=== PATIENT | female | born 1955 | race Caucasian/White ===

== ENCOUNTER 2024-01-17 13:53 | Outpatient (AMB) | payer MEDICARE, SELFPAY ==
--- NOTE | 2024-01-17 13:56 | HO.NEPHOV_ITS ---
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 She has had hypertension for almost 24 years. Initially she was on amlodipine and Edarbi She developed atrial fibrillation. Amlodipine has been switched to Cardizem. Recently blood pressure has been suboptimal. She has been monitoring of blood pressure at home blood pressure fluctuates anywhere from 130 mm up to 160 mm Hg. Recent blood work revealed a creatinine of 1.4. She had renal ultrasonogram which showed essentially normal-appearing kidneys with normal echogenicity no stones or hydronephrosis. Right kidney was reported as 8.2 cm with the left kidney measuring 10.7. But echogenicity was normal Review of Systems Const Denies fever(s) and Denies weight loss Card Denies chest pain Resp Denies cough and Denies hemoptysis GI Denies abdominal pain, Denies diarrhea and Denies nausea Musc Denies back pain Neuro Denies focal weakness Physical Exam Vital Signs: Last Vital Signs Pulse 75 01/17/24 13:57 BP 160/74 H 01/17/24 13:57 Pulse Ox 98 01/17/24 13:57 Oxygen Delivery Method Room Air 01/17/24 13:57 BMI result Body Mass Index 29.3 Comfortable Neck supple no JVD. Lungs entry equal no rales. Heart S1-S2 heard no gallop or rub. Abdomen soft nontender. Neuro alert awake oriented. No asterixis. Extremities no edema. Results Reviewed Results Reviewed: Serum creatinine 1.4 Nephrology Results: No Data to Display Assessment & Plan Assessment & Plan (1) HTN (hypertension): Code(s): I10 - Essential (primary) hypertension Category: Medical (2) CKD (chronic kidney disease): Code(s): N18.9 - Chronic kidney disease, unspecified Category: Medical Plan 69-year-old man with mild CKD and hypertension. Kerri has had hypertension for more than 24 years. In the office for initial blood pressure was 1 60 mm and repeat systolic blood pressure was 200 mm Hg. She might have superimposed white coat effect in addition to underlying hypertension. I will obtain a 24 hour ambulatory blood pressure monitoring CKD Differential diagnosis would include hypertensive nephrosclerosis. Recent ultrasonogram did not reveal any obstruction. Other glomerular interstitial disease seem unlikely but nevertheless we will rul e that out. I have not made any changes to the antihypertensive medication. Once ABP M is completed I will adjust the medications Encouraged her to stand low-sodium diet Continue to avoid nephrotoxic agents including NSAIDs. We will keep you updated Orders: Orders Comprehensive Met. Panel Today I10 - Essential (primary) hypertension, N18.9 - Chronic kidney disease, unspecified UA and rflx microscopic Today I10 - Essential (primary) hypertension, N18.9 - C hronic kidney disease, unspecified Sodium Urine Random Today I10 - Essential (primary) hypertension, N18.9 - Chronic kidney disease, unspecified Vitamin D 25-OH (D2 and D3) Today I10 - Essential (primary) hypertension, N18.9 - Chronic kidney disease, unspecified AMB 24 HR B/P Monitor PLACEMENT Today I10 - Essential (primary) hypertension Parathyroid Hormone Intact Today I10 - Essential (primary) hypertension, N18.9 - Chronic kidney disease, unspecified Creatinine Urine Today I10 - Essential (primary) hypertension, N18.9 - Chronic kidney disease, unspecified Coding Level of Care Code New Pt Level 4 (05375) Diagnoses HTN (hypertension) I10 CKD (chronic kidney disease) N18.9
[2024-01-17 13:57] VITALS: BP 160/74; PULSE 75; O2SAT 98; BMI 29.3
== END 2024-01-17 14:40 | disposition home or self-care (01) ==
PROVIDERS: PCP Physician Assistant Medical; Visit Provider Internal Medicine Hypertension Specialist
DX: I12.9 Hypertensive chronic kidney disease with stage 1 through stage 4 chronic kidney disease, or unspecified chronic kidney disease (principal); N18.2 Chronic kidney disease, stage 2 (mild)
CPT/HCPCS: 99204

== ENCOUNTER → 2024-01-17 13:53 | Outpatient (BNVA) | payer MEDICARE, SELFPAY | PROVIDERS: PCP Physician Assistant Medical; Visit Provider Internal Medicine Hypertension Specialist | DX: I12.9 Hypertensive chronic kidney disease with stage 1 through stage 4 chronic kidney disease, or unspecified chronic kidney disease (principal); N18.9 Chronic kidney disease, unspecified | CPT/HCPCS: 99202 ==

== ENCOUNTER → 2024-01-18 13:41 | Outpatient (BNVA) | payer MEDICARE, SELFPAY | PROVIDERS: PCP Physician Assistant Medical; Visit Provider Internal Medicine Hypertension Specialist | DX: I10 Essential (primary) hypertension (principal) | CPT/HCPCS: 93786 ==

== ENCOUNTER 2024-01-23 10:47 | Outpatient (REF) | payer MEDICARE, SELFPAY ==
[2024-01-23 12:02] LABS: Appearance Urine Clear; Color Urine Yellow; Glucose Urine UA Negative (Negative); Leukocyte Esterase Urine Negative (Negative); Nitrite Urine Negative (Negative); PH 5.5 (5.0-9.0); Specific Gravity - Urine 1.015 (1.005-1.025); UMIC TRIGGER UA YES; Urine Blood Negative (Negative); Urine Ketones Negative (Negative); Urine Protein 30 (1+) mg/dL (Neg-Trace)
[2024-01-23 12:07] LABS: Bacteria Urine None Seen (None Seen); Hyaline Casts Urine 0-2 /LPF (0-2); RBC Urine 0-2 /HPF (0-2); WBC Urine 0-5 /HPF (0-5)
[2024-01-23 12:23] LABS: Alanine Aminotransferase 22 U/L (0-31); Albumin Level 4.3 g/dL (3.5-5.0); Alkaline Phosphatase 78 U/L (39-117); Anion Gap 12 (12-20); Aspartate Amino Transferase 30 U/L (5-31); Bilirubin Total 0.5 mg/dL (0.0-1.0); Blood Urea Nitrogen 15 mg/dL (9-16); Calcium 9.3 mg/dL (8.4-10.2); Carbon Dioxide 26 mmol/L (22-29); Chloride 103 mmol/L (96-108); Estimated Glomerular Filt Rate 56; Glucose Random 120 mg/dL (60-115); Potassium 3.8 mmol/L (3.3-5.1); Sodium 137 mmol/L (135-145); Total Protein 7.7 g/dL (6.5-8.0)
[2024-01-23 12:28] LABS: Parathyroid Hormone Intact 133.5 pg/mL (8.7-77.1)
[2024-01-27 16:03] LABS: Vitamin D 25-OH, D2 <4 ng/mL; Vitamin D 25-OH, D3 17 ng/mL; Vitamin D 25-OH, Total 17 ng/mL (30-100)
== END 2024-01-23 10:48 | disposition home or self-care (01) ==
LOC: HO.LAB 10:47
PROVIDERS: PCP Physician Assistant Medical; Visit Provider Internal Medicine Hypertension Specialist
DX: I10 Essential (primary) hypertension (principal); N18.9 Chronic kidney disease, unspecified
CPT/HCPCS: 36415; 80053; 81001; 81003; 82306; 82570; 83970; 84300

== ENCOUNTER 2024-02-07 11:15 | Outpatient (AMB) | payer MEDICARE, SELFPAY ==
[2024-02-07 11:27] VITALS: BP 196/64; PULSE 72; O2SAT 97; BMI 29.1
--- NOTE | 2024-02-07 11:27 | HO.NEPHOV_ITS ---
Vital Signs 02/07/24 11:27 Height 5 ft 1 in Weight 154 lb BMI 29.1 BP 196/64 H Blood Pressure Location Rt brachial Position Sitting Pulse 72 Pulse Source Pulse Oximeter Pulse Oximetry (%) 97 Oxygen Delivery Method Room Air Intake Visit Reasons: CKD/ Conf [employer] Required: No Accompanied by: Self / Same As Patient Allergies penicillin G [PENICILLIN G] Allergy (Unknown, Verified 02/07/24 11:29) UNKNOWN Medication List - Last Reconciled 02/07/24 by Harrison Wilson MD apixaban (Eliquis) 5 mg PO BID azilsartan medoxomil (Edarbi) 40 mg PO DAILY diltiazem HCl ER 180 mg PO DAILY escitalopram oxalate 10 mg PO DAILY HPI Comments Details: Kerri is a pleasant 69-year-old woman with a history of hypertension and CKD. She has had hypertension for almost 24 years. Initially she was on amlodipine and Edarbi She developed atrial fibrillation. Amlodipine has been switched to Cardizem. Recently blood pressure has been suboptimal. She has been monitoring of blood pressure at home blood pressure fluctuates anywhere from 130 mm up to 160 mm Hg. Recent blood work revealed a creatinine of 1.4. She had renal ultrasonogram which showed essentially normal-appearing kidneys with normal echogenicity no stones or hydronephrosis. Right kidney was reported as 8.2 cm with the left kidney measuring 10.7. But echogenicity was normal 02/07/2024. Kerri underwent ABP M. She has been monitoring her blood pressure at home. Overall home blood pressure readings are acceptable. No specific complaints Physical Exam Vital Signs: Last Vital Signs Pulse 72 02/07/24 11:27 BP 196/64 H 02/07/24 11:27 Pulse Ox 97 02/07/24 11:27 Oxygen Delivery Method Room Air 02/07/24 11:27 BMI result Body Mass Index 29.1 Comfortable Neck supple no JVD. Lungs entry equal no rales. Heart S1-S2 heard no gallop or rub. Abdomen soft nontender. Neuro alert awake oriented. No asterixis. Extremities no edema. Office Procedures 24 B/P Monitor Interpretation CPT: 92991 24 Hour Blood Pressure Monitor Reading Procedure code (CPT) selection complete Results Reviewed Nephrology Results: Sodium 137 mmol/L (135-145) 01/23/24 Potassium 3.8 mmol/L (3.3-5.1) 01/23/24 Chloride 103 mmol/L (96-108) 01/23/24 Carbon Dioxide 26 mmol/L (22-29) 01/23/24 BUN 15 mg/dL (9-16) 01/23/24 Creatinine 0.98 mg/dL (0.5-1.4) 01/23/24 Calcium 9.3 mg/dL (8.4-10.2) 01/23/24 PTH Intact 133.5 pg/mL (8.7-77.1) H 01/23/24 Urine Protein 30 (1+) mg/dL (Neg-Trace) H 01/23/24 Urine Creatinine 92.30 mg/dL 01/23/24 Assessment & Plan Assessment & Plan (1) HTN (hypertension): Code(s): I10 - Essential (primary) hypertension Category: Medical (2) CKD (chronic kidney disease): Code(s): N18.9 - Chronic kidney disease, unspecified Category: Medical Plan 69-year-old woman hypertension. Kerri has had hypertension for more than 24 years. Based on the 24 hour ABP M she has suboptimal blood pressure with nocturnal dipping. There is clearly a component of white coat effect There were few low readings during daytime in the range of 104/70 mm Hg. She was asymptomatic Mild CKD Differential diagnosis would include hypertensive nephrosclerosis. Recent ultrasonogram did not reveal any obstruction. Other glomerular interstitial disease unlikely Based on ABP M , I would continue with the same antihypertensive medication but change the timing. She will take diltiazem in the morning and he had ARB in the evening. This should eliminate drops in blood pressure during daytime. She should monitor blood pressure at home and based on home blood pressure readings we can readjust medications. Encouraged her to stay on low-sodium diet Continue to avoid nephrotoxic agents including NSAIDs. We will keep you updated Coding Level of Care Code Est Pt Level 4 (33759) Diagnoses HTN (hypertension) I10 CKD (chronic kidney disease) N18.9 CPT Codes - CPT: 76118 24 Hour Blood Pressure Monitor Reading ([id number])
--- OUTSIDE RECORDS SUMMARY | 2024-02-07 11:39 | XMS_ITS | Data Portability ---
Author Organization [place] - [facility], [facility] Address [address] [place] [address] Care Team Providers Care Adjunct Faculty For Medical Terminology Name Role Phone EMERYSHARYN Primary Care Provider Assessment No assessment recorded. Plan of Treatment Reminders Order Date Submit Date Provider Last Modified By Organization Details Last Modified Time Details Appointments None recorded. Lab urinalysi s, dipstick 2018 019 In-Office Order, Internal Use Only DO Not Attach Compendium DO Not Attach Compendium, Do Not Delete/merge, [id number] 9 15:32:50 pap, IG + reflex HPV 2018 019 [facility], [facility], [address] [place] [address], [address] 9 07:48:10 pap, IG + reflex HPV 2019 020 [facility], [address] [place] [address], [address] 0 10:09:56 urinalysi s, dipstick 2019 020 In-Office Order, Internal Use Only DO Not Attach Compendium DO Not Attach Compendium, Do Not Delete/merge, [id number] 0 11:07:11 pap, IG + reflex HPV 2020 021 [facility], [address] [place] [address], [address] 1 09:18:07 pap, IG + reflex HPV 2021 022 [facility], [address] [place], [address] 2 10:48:24 pap, IG + reflex HPV 2023 024 [facility], [facility], [address] [place], [address] 4 11:10:22 Referral None recorded. Procedures None recorded. Surgeries None recorded. Imaging MAMMO, screening , digital, bilateral , w/ CAD 2018 019 [facility], [address], [place], [address], 9 08:24:48 MAMMO, screening , digital, bilateral , w/ CAD 2019 020 [facility], [address], [address], [place], [address], 1 11:10:08 DEXA, axial skeleton 2019 020 [facility], [address], [address], [place], [address], 1 14:04:32 MAMMO, screening , digital, bilateral , w/ CAD 2020 021 [facility], [address], [address], [place], [address], 2 11:24:59 US, breast, bilateral 2020 021 [facility], [address], [address], [place], [address], 2 14:09:09 MAMMO, screening , digital, bilateral , w/ CAD 2021 022 [facility], [address], [address], [place], [address], 3 10:04:49 US, breast, bilateral , complete 2021 022 [place] [id number] [facility], [address], [address], [place], [address], 2 11:21:06 MAMMO, screening , digital, bilateral , w/ CAD 2023 024 [place] [id number] [facility], [address], [address], [place], [address], 4 14:25:57 US, breast, bilateral , complete 2023 024 [place] [address] [facility], [address], [address], [place], [address], 4 14:25:57 DEXA, axial skeleton [address], [address], [place], [address], 4 14:25:57 Medication Orders None recorded. Patient TargetsNo targets recorded. Patient Instructions Encounter Date Encounter Id Patient Instructions Last Modified By Organization Details Last Modified Time 11/14/2018 [id number] mammogram: about this test Not available 11/14/2018 15:32:50 tips to help you stay healthy Not available 11/14/2018 15:32:50 [facility] completed and reviewed with patient. Negative findings. Not available 11/14/2018 15:26:15 12/11/2019 [id number] mammogram: about this test Not available 12/11/2019 11:07:11 tips to help you stay healthy Not available 12/11/2019 11:07:11 [facility] screening completed and reviewed with patient. Negative findings. Not available 12/11/2019 11:03:04 01/09/2021 [id number] tips to help you stay healthy Not available 01/09/2021 11:15:05 [facility] screening completed and reviewed with patient. Negative findings. atul Not available 01/09/2021 11:15:16 02/10/2022 [id number] mammogram: about this test atul Not available 02/10/2022 11:12:13 tips to help you stay healthy atul Not available 02/10/2022 11:12:13 [facility] screening completed and reviewed with patient. Negative findings. atul Not available 02/10/2022 11:07:35 05/10/2023 [id number] [facility] screening completed and reviewed with patient. Negative findings. atul Not available 05/10/2023 13:45:23 Reason for Referral None Reported. Results Created Date Observation Date Name Description Value Unit Range Abnormal Flag Note LastModifiedBy Organization Detail LastModifiedTime 12/11/2019 urina lysis , dipst ick Interpretati on negati ve Not Available In-Office Order Internal Use Only DO Not Attach Compendium DO Not Attach Compendium, Do Not Delete/merge, [id number] 12/11/2019 10:39:32 11/14/2018 urina lysis , dipst ick Interpretati on negati ve Not Available In-Office Order Internal Use Only DO Not Attach Compendium DO Not Attach Compendium, Do Not Delete/merge, [id number] 11/14/2018 14:52:34 11/15/1911/14/2018 pap, IG + refle x HPV report Report Final Gynec ologi bobby Cytol ogy Repor t ----- ----- ----- ----- ----- ----- ----- ----- ----- ----- ----- ----- ThinP rep Pap Test with HPV Refle x SPECI MEN ADEQU ACY: SATIS FACTO RY FOR EVALU ATION . INTER PRETA TION: NEGAT RAY FOR INTRA EPITH ELIAL LESCOLLETTE N OR LIYAH MCGINNIS . Note: This Pap test was proce ssed by the adan smith, but requi red kedar lópez Erika álvarez: Tawana Chong, [place] (ASCP ) ----- ----- ----- ----- ----- ----- ----- ----- ----- ----- ----- ----- CLINI BOBBY INFOR MATIO N: LMP: NG Speci men Sourc e: Vagin al Previ ous Pap Date: 11/11 CPT Codes : 32999 ICD Codes : Z01.4 19 Not Available [facility] [address] [place], [address] 11/16/2018 07:48:10 12/11/19 20 12/11/2019 pap, IG + refle x HPV report Report Final Gynec ologi bobby Cytol ogy Repor t ----- ----- ----- ----- ----- ----- ----- ----- ----- ----- ----- ----- ThinP rep Pap Test with HPV Refle x SPECI MEN ADEQU ACY: SATIS FACTO RY FOR EVALU ATION . INTER PRETA TION: NEGAT RAY FOR INTRA EPITH PAYTON Franklin OR LIYAH MCGINNIS . Elect edwin álvarez: Seema Bobo, [place] (ASCP ) ----- ----- ----- ----- ----- ----- ----- ----- ----- ----- ----- ----- CLINI BOBBY INFOR MATIO N: LMP: NG Speci men Sourc e: Vagin al Previ ous Pap Date: 11/14 CPT Codes : 12239 ICD Codes : Z01.4 19 Not Available [facility] [address] [place], [address] 12/14/2019 10:09:56 01/10/20 21 01/09/2021 THINP REP PAP TEST (IMAG ER) WITH HPV REFLE X report Report Final Gynec ologi bobby Cytol ogy Repor t ----- ----- ----- ----- ----- ----- ----- ----- ----- ----- ----- ----- ThinP rep Pap Test with HPV Refle x SPECI MEN ADEQU ACY: SATIS FACTO RY FOR EVALU ATION . INTER PRETA TION: NEGAT RAY FOR INTRA EPITH PAYTON [place] OR LIYAH MCGINNIS . Elect edwin Vasquez d: Víctor Whelan, [place] (ASCP ) ----- ----- ----- ----- ----- ----- ----- ----- ----- ----- ----- ----- CLINI BOBBY INFOR GIOVANA N: LMP: NG Clini bobby Histo ry: HY Speci men Sour e: Jose L bynum CPT Codes : 68915 ICD Codes : Z01.4 19 Not Available [facility] [address] [place] [address], [address] 01/19/2021 09:18:07 02/11/20 22 02/20/2022 THINP REP TIS PAP W/REF L HPV MRNA E6/E7 clinical information: normal HYST Not Available [facility] [address], [address], 02/20/2022 10:48:24 02/11/20 22 02/20/2022 THINP REP TIS PAP W/REF L HPV MRNA E6/E7 LMP: normal NONE GIVEN Not Available [facility] [address], [address], 02/20/2022 10:48:24 02/11/20 22 02/20/2022 THINP REP TIS PAP W/REF L HPV MRNA E6/E7 prev. Pap: normal 01/09 Not Available [facility] [address], [address], 02/20/2022 10:48:24 02/11/20 22 02/20/2022 THINP REP TIS PAP W/REF L HPV MRNA E6/E7 prev. BX: normal NONE GIVEN Not Available [facility] [place] [facility] [address] [place], [address], 02/20/2022 10:48:24 02/11/20 22 02/20/2022 THINP REP TIS PAP W/REF L HPV MRNA E6/E7 source: normal Vagin a Not Available [facility] [place] [facility] [address] [place], [place], [address], 02/20/2022 10:48:24 02/11/20 22 02/20/2022 THINP REP TIS PAP W/REF L HPV MRNA E6/E7 statement of adequacy: normal SATIS FACTO RY FOR EVALU ATION Parti ally obscu ring infla mmati on Not Available [facility] [place] [facility] [address] [place], [place], [address], 02/20/2022 10:48:24 02/11/20 22 02/20/2022 THINP REP TIS PAP W/REF L HPV MRNA E6/E7 interpretati on/result: normal Negat ray for intra epith elial lesio n or malig tarsha . Not Available [facility] [place] [facility] [address] [place], [address], 02/20/2022 10:48:24 02/11/20 22 02/20/2022 THINP REP TIS PAP W/REF L HPV MRNA E6/E7 comment: normal This Pap test has been evalu ated with compu ter paloma gita techn ology . Not Available [facility] [address] [place], [place], [address], 02/20/2022 10:48:24 02/11/20 22 02/20/2022 THINP REP TIS PAP W/REF L HPV MRNA E6/E7 cytotechnolo gist: normal MAA, CT( CP) CT scree sylvia locat ion: [facility] [address] [place], [place] [address] Not Available [facility] [place] [facility] [address], [address], 02/20/2022 10:48:24 02/11/20 22 02/20/2022 THINP REP TIS PAP W/REF L HPV MRNA E6/E7 review cytotechnolo gist: normal CMG, CT( CP) CT scree sylvia locat ion: [facility] [address] [place] [place], [place] [address] Not Available [facility] [address], [address], 02/20/2022 10:48:24 02/11/20 22 02/20/2022 THINP REP TIS PAP W/REF L HPV MRNA E6/E7 comment EXPLA NATOR Y NOTE: The Pap is a scree sylvia test for cervi bobby cance r. It is not a diagn ostic test and is subje ct to false negat ray and false posit ray resul ts. It is most relia ble when a satis facto ry sampl e, regul duke obtai shelli, is submi tted with relev ant clini bobby findi ngs and histo ry, and when the Pap resul t is evalu ated along with histo aggie and curre nt clini bobby infor matio n. Not Available [facility] [address], [address], 02/20/2022 10:48:24 05/10/19 24 05/10/2023 THINP REP PAP TEST (IMAG ER) WITH HPV REFLE X report Report Final Gynec ologi obbby Cytol ogy Repor t ----- ----- ----- ----- ----- ----- ----- ----- ----- ----- ----- ----- ThinP rep Pap Test with HPV Refle x SPECI MEN ADEQU ACY: SATIS FACTO RY FOR EVALU ATION . INTER PRETA TION: NEGAT RAY FOR INTRA EPITH ELIAL AMBER [place] OR LIYAH MCGINNIS . Elect edwin Vasquez d: Víctor W[place], [place] (ASCP ) ----- ----- ----- ----- ----- ----- ----- ----- ----- ----- ----- ----- CLINI BOBBY INFOR GIOVANA N: LMP: NG Biops y Date: NG Speci men Sourc e: Vagin al Previ ous Pap Date: 02/10 CPT Codes : 07658 ICD Codes : Z01.4 19 Not Available [facility] [address] [place], [address] 05/13/2023 11:10:22 10/01/19 20 10/01/2019 MAMMO , scree sylvia, digit al, bilat eral, w/ CAD No observ ation record ed. [address], [address], 10/03/2019 10:36:33 10/01/19 20 10/01/2019 US, jessica stauffer eral No observ ation record ed. [facility] (Department Of Radiology/Talya ging) [address] [place] [address], [address], 10/03/2019 10:36:33 10/03/19 21 10/02/2020 MAMMO , scree sylvia, digit al, bilat eral, w/ CAD No observ ation record ed. [email or web address] [facility] (Imaging) [address] [place] [address], [address], 10/02/2020 12:07:26 10/03/19 21 10/02/2020 , jessica stauffer eral No observ ation record ed. [facility] (Imaging) [address] [place], [address], 10/06/2020 13:52:06 10/04/19 21 10/02/2020 DEXA, axial skele ton No observ ation record ed. [facility] (Imaging) [address] [place], [address], 10/06/2020 13:52:06 12/02/19 22 12/01/2021 US, breas t, bilat eral No observ ation record ed. [email or web address] [facility] ([facility]) [address] [place], [address], 12/02/2021 11:35:39 12/04/19 22 12/01/2021 MAMMO , scree sylvia, digit al, bilat eral, w/ CAD No observ ation record ed. [facility] ([facility]) [address] [place], [address], 12/04/2021 12:33:03 01/26/20 23 01/24/2023 MAMMO , scree sylvia, digit al, bilat eral, w/ CAD No observ ation record ed. [facility] [address], [place], [address], 01/25/2023 15:34:42 Result Notes None recorded. Problems Name Problem SNOMED Code Status Onset Date Resolution Date Notes Provider Name and Address Organization Details Recorded Time Malignant neoplasm of uterus 968264321 Active CANDICE MENENDEZ DO [address], [address] [place] [address], [address], [place] - [facility] 6 09:55:30 Family history of breast cancer 381128647 Active CANDICE MENENDEZ DO [address], [address] [place] [address], [place], [address], [place] - [facility] 6 09:55:30 Atrial fibrillation 29244998 Active 2023 [facility] null, [place] - [facility] 4 13:21:16 Premature beats 24067627 Active 2023 [facility] null, [place] - [facility] 4 13:22:08 Notes:06/14/2013: BRCA2 GENE MUTATION NEGATIVE ([id number]) Problem Notes None recorded. Procedures Surgical History Date Name Laterality Status Provider Name and Address Organization Details Recorded Time 05/10/19 [id number] completed CANDICE MENENDEZ DO [address], [place], [address], [facility] 05/10/2023 14:08:37 01/25/20 23 Date of Last Mammogram completed [facility] 05/10/2023 13:25:01 02/11/20 22 I4M-QMG completed CANDICE MENENDEZ DO [address], [place], [address], [facility] 02/10/2022 11:07:56 02/11/20 22 L2S-XQUBOVA completed CANDICE MENENDEZ DO [address], [place], [address], [facility] 02/10/2022 11:07:58 02/11/20 22 Date of Last Pap Smear completed [facility] 05/10/2023 13:24:40 01/10/20 21 I8P-QPV completed CANDICE MENENDEZ DO [address], [place], [address], [facility] 01/09/2021 11:14:18 01/10/20 21 R5M-RNFCDTZ completed CANDICE MENENDEZ DO [address], [place], [address], [facility] 01/09/2021 11:14:20 12/11/19 20 B7I-FGN completed Carline Ernandez [place] - [facility] 12/11/2019 06:50:07 12/11/19 20 H6T-FFRPSGT completed CANDICE MENENDEZ DO [address], [place], [address], [place] - [facility] 12/11/2019 11:02:15 11/15/19 19 J2Q-GXC completed Carline Ernandez [place] - [facility] 11/14/2018 15:08:55 11/15/19 19 C9I-VOQOBSL completed CANDICE MENENDEZ DO [address], [place], [address], [place] - [facility] 11/14/2018 15:24:36 11/12/19 18 P8I-CDK completed Carline Ernandez [place] - [facility] 11/11/2017 14:03:42 11/12/19 18 S8B-PAZZCGJ completed CANDICE MENENDEZ DO [address], [place], [address], [place] - [facility] 11/11/2017 14:28:05 01/22/20 17 Colonoscopy completed Carline Ernandez CT - [facility] 11/11/2017 14:00:52 12/24/19 17 Date of Last Colonoscopy completed Carline Ernandez CT - [facility] 11/11/2017 14:01:25 10/14/19 17 S4G-ROO completed CANDICE MENENDEZ DO [address], [place], [address], [place] - [facility] 10/13/2016 15:20:24 10/14/19 17 M4L-VPVTLV completed CANDICE MENENDEZ DO [address], [place], [address], [place] - [facility] 10/13/2016 15:20:24 10/14/19 17 B4R-HBT completed CANDICE MENENDEZ DO [address], [place], [address], [place] - [facility] 10/13/2016 15:20:24 10/14/19 17 X7V-JJNUTCQ completed CANDICE MENENDEZ DO [address], [place], [address], [place] - [facility] 10/13/2016 15:20:24 10/14/19 17 H3O-AFAOBA completed CANDICE MENENDEZ DO [address], [place], [address], [place] - [facility] 10/13/2016 15:20:24 08/26/19 16 A4T-JTJ completed CANDICE MENENDEZ DO [address], [place], [address], [place] - [facility] 08/26/2015 09:52:36 08/26/19 16 N6Y-KZSJYZ completed CANDICE MENENDEZ DO [address], [place], [address], [place] - [facility] 08/26/2015 09:52:36 08/26/19 16 K7B-NZP completed CANDICE MENENDEZ DO [address], [place], [address], [place] - [facility] 08/26/2015 09:52:36 08/26/19 16 H6X-VHX completed CANDICE MENENDEZ DO [address], [place], [address], [place] - [facility] 08/26/2015 09:52:36 08/26/19 16 X4D-KHBRDGR completed CANDICE MENENDEZ DO [address], [place], [address], [place] - [facility] 08/26/2015 09:52:36 07/05/20 16 T0S-AEHNXF completed CANDICE MENENDEZ DO [address] [facility], [address]rd Floor, [place], [address], [place] - [facility] 08/26/2015 09:52:36 07/23/19 10 Melanomaajcc stage 0 or ia completed TERRANCE RODRIGUEZ MD [address] [facility], [address]rd Floor, [place], [address], [place] - [facility] 07/23/2014 12:28:00 01/26/20 06 Hysterectomy with removal of the ovaries completed Carline Ernandez [place] - [facility] 07/23/2014 11:40:16 02/21/19 05 Cholecystectomy completed Carline Ernandez CT - [facility] 07/23/2014 11:40:16 Conization of cervix completed Carline Ernandez CT - [facility] 07/23/2014 11:40:16 LEEP completed Not Available [facility] 08/10/2014 02:57:11 Hysterectomy completed Not Available [facility] 08/10/2014 02:57:11 Imaging Results Imaging Date Name Status LastModified by Organiz ation Details LastModified Time 10/01/2019 MAMMO, screening, digital, bilateral, w/ CAD completed [address], [address], 10/03/2019 10:36:33 10/01/2019 US, breast, bilateral completed [facility] (Department Of Radiology/Imaging ) [address] [place] [address], [address], 10/03/2019 10:36:33 10/02/2020 MAMMO, screening, digital, bilateral, w/ CAD completed [email or web address] (Imaging) [address] [place] [address], [address], 10/02/2020 12:07:26 10/02/2020 US, breast, bilateral completed [facility] (Imaging) [address] [place] [address], [address], 10/06/2020 13:52:06 10/02/2020 DEXA, axial skeleton completed [facility] (Imaging) [address] [place], [address], 10/06/2020 13:52:06 12/01/2021 US, breast, bilateral completed [email or web address] [facility] ([facility]) [address], [place], [address], 12/02/2021 11:35:39 12/01/2021 MAMMO, screening, digital, bilateral, w/ CAD completed [facility] ([facility]) [address], [place], [address], 12/04/2021 12:33:03 01/24/2023 MAMMO, screening, digital, bilateral, w/ CAD completed [facility] [address], [place], [address], 01/25/2023 15:34:42 Procedure Notes None recorded. Medical Equipment None Reported. Allergies Allergen ID Allergen Name Allergen Category Reaction Reaction Severity Criticality Documentation Date Start Date Code Code System Note Provider Name and Address Organization Details Recorded Time 074052 Medicinal product containin g penicilli n and acting as antibacte rial agent (product) medicatio n Not available Not available Not available 07/23/20142012 22687 05 SNOMED Not Available [facility] 5 09:50:36 734387 erythromy tony medicatio n Not available Not available Not available 07/30/20142012 4053 RxNorm [facility], [place] - [facility] 6 09:15:41 Medications Name Sig Start Date Stop Date Status Note LastModified by Organization Details LastModified Time desonide 0.05 % topical cream active Not Available Not Available Not Available diltiazem ER 180 mg capsule,2 4 hr,extend ed release Take 1 capsule every day by oral route. active Not Available Not Available No t Available azithromy tony 250 mg tablet 11/14 completed Not Available Not Available Not Available metoprolo l succinate ER 50 mg tablet,ex tended release 24 hr TAKE 1 TABLET BY MOUTH EVERY DAY 05/09 completed Not Available Not Available Not Available betametha german, augmented 0.05 % topical cream 11/14 completed Not Available Not Available Not Available Vivelle 0.05 mg/24 hr transderm al patch APPLY 1 PATCH BY TRANSDER MAL ROUTE 2 TIMES EVERY WEEK 05/23 completed PRESCRIB ED ELSEWHER E Not Available Not Available Not Available amlodipin e 2.5 mg tablet 11/11 completed Not Available Not Available Not Available amlodipin e 5 mg tablet TAKE 1 TABLET BY MOUTH EVERY DAY 05/09 completed Not Available Not Available Not Available metoprolo l tartrate 50 mg tablet 05/09 completed Not Available Not Available Not Available Viactiv 500 mg-100 unit-40 mcg chewable tablet 11/14 completed PRESCRIB ED ELSEWHER E Not Available Not Available Not Available codeine 10 mg-guaife nesin 100 mg/5 mL oral liquid 11/14 completed Not Available Not Available Not Available Cozaar 25 mg tablet TAKE 1 TABLET BY ORAL ROUTE EVERY DAY active PRESCRIB ED ELSEWHER E Not Available Not Available Not Available furosemid e 20 mg tablet TAKE 1 TABLET BY MOUTH EVERY DAY 05/09 completed Not Available Not Available Not Available levofloxa tony 750 mg tablet TAKE 1 TABLET BY MOUTH EVERY DAY FOR 7 DAYS 05/09 completed Not Available Not Available Not Available Vitamin D2 1,250 mcg (50,000 unit) capsule TAKE 1 CAPSULE BY ORAL ROUTE EVERY WEEK 11/14 completed PRESCRIB ED ELSEWHER E Not Available Not Available Not Available losartan 100 mg tablet 11/11 completed Not Available Not Available Not Available doxycycli ne hyclate 100 mg tablet 12/10 completed Not Available Not Available Not Available estradiol 0.025 mg/24 hr semiweekl y transderm al patch APPLY 1 PATCH TO SKIN TWICE A WEEK 02/10 completed Not Available Not Available Not Available Fosamax 70 mg/75 mL oral solution TAKE 75 MILLILIT ER BY ORAL ROUTE EVERY WEEK IN THE MORNING, AT LEAST 30 MIN BEFORE FIRST FOOD, BEVERAGE , OR MEDICATI ON OF DAY 04/28 completed PRESCRIB ED ELSEWHER E Not Available Not Available Not Available Calcium 500 + D 05/09 completed Not Available Not Available Not Available Zostavax (PF) 19,400 unit/0.65 mL subcutane ous suspensio n active Not Available Not Available Not Available Bystolic 2.5 mg tablet TAKE 2 TABLET BY ORAL ROUTE EVERY DAY active PRESCRIB ED ELSEWHER E Not Available Not Available Not Available Bystolic 5 mg tablet active Not Available Not Available Not Available Probiotic 10 billion cell capsule 2013 active PRESCRIB ED ELSEWHER E Not Available Not Available Not Available Probiotic 12/10 completed Not Available Not Available Not Available Edarbi 40 mg tablet Take 1 tablet every day by oral route. active Not Available Not Available No t Available Matzim LA 180 mg tablet,ex tended release TAKE 1 TABLET BY MOUTH EVERY DAY 05/09 completed Not Available Not Available Not Available Minivelle 0.0375 mg/24 hr transderm al patch APPLY 1 PATCH BY TRANSDER MAL ROUTE 2 TIMES EVERY WEEK 07/10 completed Not Available Not Available Not Available Eliquis 5 mg tablet TAKE 1 TABLET BY MOUTH TWICE DAILY active Not Available Not Available No t Available Afluria 3342-8205 (PF) 45 mcg(15 mcg x 3)/0.5 mL intramusc ular syringe 11/11 completed Not Available Not Available Not Available Shingrix (PF) 50 mcg/0.5 mL intramusc ular suspensio n, kit 11/11 completed Not Available Not Available Not Available Fluarix Quad (PF) 60 mcg (15 mcg x 4)/0.5 mL IM syringe 11/14 completed Not Available Not Available Not Available Fluarix Quad (PF) 60 mcg (15 mcg x 4)/0.5 mL IM syringe 11/14 completed Not Available Not Available Not Available Fluzone Quad (PF) 60 mcg (15 mcg x 4)/0.5 mL IM syringe 12/10 completed Not Available Not Available Not Available Vitals Date Recorded Body height Body mass index (BMI) Body weight Systolic blood pressure Diastolic blood pressure Provider Name and Address Organization Details Last Updated DateTime 11/14/2018 154.31 cm 31.8 kg/m2 58591.93 g 142 mm[Hg] 60 mm[Hg] Carline Ernandez [place] - [facility] 9 15:05:46 Date Recorded Body height Body mass index (BMI) Body weight Systolic blood pressure Diastolic blood pressure Provider Name and Address Organization Details Last Updated DateTime 12/11/2019 154.31 cm 33.3 kg/m2 42970.66 g 130 mm[Hg] 64 mm[Hg] Carline Ernandez [facility] 0 10:31:23 Date Recorded Body height Body mass index (BMI) Body weight Systolic blood pressure Diastolic blood pressure Provider Name and Address Organization Details Last Updated DateTime 01/09/2021 154.31 cm 33 kg/m2 61746.48 g 120 mm[Hg] 70 mm[Hg] Jay Jay Tolliver [facility] 1 10:59:17 Date Recorded Body height Body mass index (BMI) Body weight Systolic blood pressure Diastolic blood pressure Provider Name and Address Organization Details Last Updated DateTime 02/10/2022 154.31 cm 34.1 kg/m2 38681.03 g 134 mm[Hg] 88 mm[Hg] Bruna Bird [facility] 2 10:53:36 Date Recorded Body height Body mass index (BMI) Body weight Systolic blood pressure Diastolic blood pressure Provider Name and Address Organization Details Last Updated DateTime 05/10/2023 154.94 cm 28.6 kg/m2 16933.24 g 110 mm[Hg] 70 mm[Hg] Alexis Martin [facility] 4 13:18:27 Social History Question Answer Notes LastModified by Organizat ion Details LastModified Time Tobacco Smoking Status Former Smoker during college - quit in the 70s CANDICE MENENDEZ, DO [address] [facility], [address], [place], [address], [facility] 11/14/2018 15:13:57 Do You Have An Advance Directive? Yes [place] Information not available 05/10/2023 What Is Your Level Of Alcohol Consumption? Occasional Socially [email or web address] Information not available 02/10/2022 How Many Times Per Week Do You Consume Alcohol? 1-2 Times Per Week prov[place] Information not available 05/10/2023 Is Blood Transfusion Acceptable In An Emergency? Yes Information not available 05/10/2023 What Is Your Level Of Caffeine Consumption? Heavy Information not available 05/10/2023 In The 14 Days Before Symptom Onset, Have You Had Close Contact With A Laboratory-confi rmed COVID-19 While That Case Was Ill? No [email or web address] Information not available 02/10/2022 In The 14 Days Before Symptom Onset, Have You Had Close Contact With A Person Who Is Under Investigation For COVID-19 While That Person Was Ill? No [email or web address] Information not available 02/10/2022 Have You Been To An Area Known To Be High Risk For COVID-19? No [email or web address] Information not available 02/10/2022 Are You Currently Employed? No Retired Information not available 01/09/2021 Do You Reside In Or Have You Traveled To An Area Where Ebola Virus Transmission Is Active? No Information not available 02/10/2022 Do You Or Have You Ever Used E-cigarettes Or Vape? Never Used Electronic Cigarettes Information not available 11/14/2018 What Is The Highest Grade Or Level Of School You Have Completed Or The Highest Degree You Have Received? [id number] Information not available 05/10/2023 Have There Been Any Changes To Your Family Or Social Situation? No Information not available 05/10/2023 Are There Any Guns Present In Your Home? No Information not available 05/10/2023 Have You Recently Or Are You Planning To Travel To An Area With Zika Virus? No [email or web address] Information not available 02/10/2022 Do You Have Any Children? Yes 1 Information not available 05/10/2023 Does Your Partner Physically Hurt You Or Threaten To Hurt You? No Information not available 11/11/2017 Has Your Partner Forced You To Have Sex Or Perform Sex Acts When You Did Not Want To? No Information not available 11/11/2017 Does Your Partner Insult, Scream At Or Talk Down To You? No Information not available 11/11/2017 Does Your Partner Control You Or Any Part Of Your Life? No Information not available 11/11/2017 Are You Afraid Of Your Partner? No Information not available 11/11/2017 Drug Use? No Information no t available 07/23/2014 Do You Feel Safe At Home? Yes Information not available 07/23/2014 What Was The Date Of Your Most Recent Tobacco Screening? 05/10/2023 Information not available 05/10/2023 How Many Children Do You Have? 1 Information not available 05/10/2023 Do You Use Protection During Sex? No Information not available 01/09/2021 Are You Sexually Active? Yes Information not available 01/09/2021 Do You Or Have You Ever Used Smokeless Tobacco? Never Used Smokeless Tobacco Information not available 11/14/2018 How Much Tobacco Do You Smoke? No [email or web address] Information not available 08/21/2015 Do You Feel Stressed (tense, Restless, Nervous, Or Anxious, Or Unable To Sleep At Night)? [id number] Information not available 05/10/2023 Have You Recently Traveled Abroad? No [email or web address] Information not available 02/10/2022 Sex: Unknown Functional Status Question Answer Note LastModified by Organization D etails LastModified Time What is your exercise level? Heavy daily Information not available 05/10/2023 Mental Status Question Answer Note LastModified by Organization D etails LastModified Time Do you have difficulty concentrating, remembering or making decisions? No Information no t available 05/10/2023 Family History Relationship Description Onset Age of this Age Resolved Age Notes LastModified by Organization Details LastModified Time Father Hypertensive disorder Not available 06/2015 09:55:42 Maternal Grandfather Malignant tumor of esophagus 50 Esopha geal cancer Not available 08/26/2015 09:55:42 Maternal Uncle Malignant tumor of esophagus 60 Not available 06/2015 09:55:42 Mother Heart disease 80 Not available 06/2015 09:55:42 Mother Hypertensive disorder Not available 06/2015 09:55:42 Paternal Grandmother Malignant tumor of breast 40 Not available 06/2015 09:55:42 Medical History Condition Response Other N Kidney Stones N *No Diseases or Conditions N Breast Cancer N Blood clots N Benign breast disease N Colon cancer N Lung Disease N Depression N Defects or Inherited Disease N Anesthesia Complications N Headaches/Migraines N Neurological Disorder N Have you ever been on isolation N Anxiety Disorder N HSV N Arthritis N Infertility N Interstitial Cystitis N Abnormal pap N Acid Reflux (GERD) N Cancer Y Stroke N Endometriosis N Fibromyalgia N Spina Bifida N HIV N Heart Problems Y Sexual Dysfunction N Hypogonadism N Autoimmune disorder N Thyroid Problems N Kidney or Bladder Problems N GI Problems N Eating Disorder N Anemia N Multiple Sclerosis N Psychiatric Illness N Diabetes N Ovarian Cancer N Blood Transfusions N Bladder disease N History of MRSA N None reported by patient N Abnormal Uterine Bleeding N Hyperlipidemia N BrCa positive N Abuse/Domestic Violence N Diverticulitis N Asthma N Bladder Cancer N Hepatitis N Hypertension Y Osteoporosis Y Thrombophilias N Gynecological History Statement/Question Response Benign Breast Disease N Flow Date of Last Mammogram 01/24/2023 [facility] Biopsy N IPV Screen Done 05/10/2023 Post Menopausal Bleeding N STIs/STDs N PID N Cervical Cancer N History of Endometrial Biopsy? Y BrCa gene tested? Y If Post Menopausal, Age at Menopause 50 Ovarian Cancer N Date of Last Colonoscopy 12/23/2016 Breast Cancer N Date of last DEXA 10/02/2020 Bladder Problems N Abnormal Uterine Bleeding N Last HPV Result Negative Abnormal Pap Y BrCa Positive N Infertility N Breast Ultrasound Yes Leep Y Sexual Orientation heterosexual HPV Vaccine N Duration of Flow (days) Endometriosis N Age at Menarche 12 Age at First Child 34 Fibroids N Uterine Cancer Y Current Control Method Hysterectom y Frequency of Cycle (Q days) Mammogram Required? Y Sexually Active? Y Sexual Problems? N Date of Last Pap Smear 02/10/2022 Pap Required? N Hormone Replacement Therapy Obstetrics History GPAL:G 1 P 1 0 0 1 Type Value Multiple Births 0 Full Term 1 Induced 0 Spontaneous 0 Premature 0 Living 1 Ectopics 0 Total 1 Immunizations Vaccine Type Date Status Note Provider Terrence mitchell and Address Organization Details Recorded Time COVID-19, mRNA, LNP-S, PF, 30 mcg/0.3 mL dose 04/29/2020 completed RADHA Gonzalez - [facility] 01/09/2021 10:56:36 COVID-19, mRNA, LNP-S, PF, 30 mcg/0.3 mL dose 11/30/2020 completed Jay Jay Tolliver null, [place] - [facility] 01/09/2021 10:56:52 COVID-19, mRNA, LNP-S, PF, 30 mcg/0.3 mL dose 05/20/2020 completed Jay Jay Tolliver null, [place] - [facility] 01/09/2021 10:57:05 Past Encounters Encounter ID Performer Location Encounter Start Date Encounter Closed Date Diagnosis/Indication Diagnosis SNOMED-CT Code Diagnosis ICD10 Code [id number] Rhianna Carrillo [facility] [address] [place] [address] 07/23/2014 10:21:52 07/24/2014 15:08:48 Gynecologic examination [id number] [facility] [address] [place] [address] 04/28/2012 00:00:00 [id number] [facility] [address] [place] [address] 05/22/2013 00:00:00 [id number] [facility] [address] [place] [address] 07/10/2013 00:00:00 [id number] CANDICE MENENDEZ DO [facility] [address] [place] [address] 08/26/2015 08:54:00 08/28/2015 09:02:34 Gynecologic examination 28679882 Z01.419 Malignant neoplasm of uterus 358617011 C55 Family his tory of breast cancer 488383503 Z80.3 [id number] CANDICE MENENDEZ DO [facility] [address] [place] [address] 10/13/2016 14:48:00 10/15/2016 12:07:22 Screening for osteoporosis 589184251 Z13.820 Gynecologi c examination 97293407 Z01.419 Malignant neoplasm of uterus 216457816 C55 Family his tory of breast cancer 004510544 Z80.3 Hormone re placement therapy 502181345 Z79.762 [id number] CANDICE MENENDEZ DO [facility] [address] [place] [address] 11/11/2017 13:48:43 11/14/2017 07:59:30 Gynecologic examination 63818861 Z01.419 Malignant neoplasm of uterus 215967094 C55 Family his tory of breast cancer 162936993 Z80.3 Hormone re placement therapy 408637861 Z79.170 [id number] CANDICE SHON [facility] [place] [address] 11/14/2018 14:45:40 11/15/2018 08:24:48 Gynecologic examination 01022291 Z01.419 Depression screening 171 458863 Z13.31 Screening mammography 24 423653 Z12.31 Osteopenia 458195431 M85 .80 [id number] CANDICE MENENDEZ DO [facility] [address] [place] [address] 12/11/2019 10:22:03 12/12/2019 13:59:49 Gynecologic examination 05086351 Z01.419 Screening mammography 24 695877 Z12.31 Screening for osteoporosis 043108849 Z13.820 Depression screening 171 046015 Z13.31 Family his tory of neoplasm of breast 713556903 Z84.89 Malignant neoplasm of uterus 164551590 C55 [id number] CANDICE MENENDEZ DO [facility] [place] [address] 01/09/2021 10:20:18 01/12/2021 15:45:38 Gynecologic examination 89728084 Z01.419 Screening mammography 24 640868 Z12.31 Depression screening 171 460098 Z13.31 Mammograph ic breast density 854164841 R92.2 [id number] CANDICE MENENDEZ DO [facility] [place] [address] 02/10/2022 10:38:39 02/10/2022 11:21:06 Gynecologic examination 84451574 Z01.419 Depression screening 171 147761 Z13.31 Screening mammography 24 497939 Z12.31 Heterogene ously dense breast composition 064112308 R92.2 Family his tory of breast cancer 135510622 Z80.3 Malignant neoplasm of uterus 245026319 C55 [id number] CANDICE MENENDEZ DO [facility] [address] [place] [address] 05/10/2023 13:13:06 05/10/2023 14:25:56 Gynecologic examination 01304175 Z01.419 Screening mammography 24 689435 Z12.31 Heterogene ously dense breast composition 224493811 R92.2 Postmenopausal state 764 37767 Z78.0 Malignant neoplasm of uterus 201011016 C55 Family his tory of breast cancer 185613669 Z80.3 Depression screening 171 597710 Z13.31 Provision of clinical marketing manager declined 005719843 Z53.20 Health Concerns Section Related Observation LastModified by Organization Detai ls LastModified Time None Recorded Concern Status LastModified by Organization Details LastModified Time None Recorded Advance Directives Directive Y: Payers Encounter Date Sequence Insurance Name Policy Number Policy [place] Covered Member ID [place] Member ID Guarantor Name 11/14/2018 1 [facility] (POS) [id number] Kerri Villalbaden [id number] Kerri Stafford 12/11/2019 1 [facility] (POS) [id number] Kerri Stafford [id number] Kerri Stafford 01/09/2021 1 MEDICARE B-CT: NGS Kerri Louisa Rivera [id number] Kerri Rivera 01/09/2021 2 [employer] (MEDICARE SUPPLEMENT) Kerri Rivera [id number] Kerri Rivera 02/10/2022 1 MEDICARE B-CT: NGS Kerri A Rivera [id number] Kerri Rivera 02/10/2022 2 [employer] (MEDICARE SUPPLEMENT) Kerri Stafford [id number] Kerri Stafford 05/10/2023 1 MEDICARE B-CT: NGS Kerri A Rivera [id number] Kerri Rivera 05/10/2023 2 [employer] (MEDICARE SUPPLEMENT) Kerri Stafford [id number] Kerri Stafford Notes Date Note Type Note Provider Name and Address Organization Details Recorded Time 11/14/2018 text/html [facility] Annual GYNRe ported bypatient.History:no gynecologic complaints; no change in interval history Menstrual cycle:LAVH/BSO for adenomacarcinoma Urinary symptoms:No hematuria; No incontinence Vulva:No genital lesion Vagina:Normal vaginal discharge Breast:No breast pain; No breast lump; No nipple discharge Menopausal symptoms:No menopausal symptoms;Inadequacy of lubrication of vaginal mucosa Preventive measures:Encourage self breast examination; Encourage regular exercise; Followed with Q3 year pap smear and high risk HPV typing; Mammogram performed within the past year; Up to date on colonoscopy screening; DEXA up to date CANDICE MENENDEZ DO [address], [address], [facility] 11/14/2018 15:26:30 12/11/2019 text/html [facility] Annual GYNRe ported bypatient.History:no gynecologic complaints; no change in interval history Menstrual cycle:Amenorrhea(LAVH/ BSO 2004); postmenopausal Urinary symptoms:No hematuria; No incontinence Vulva:No genital lesion Vagina:Normal vaginal discharge Breast:No breast pain; No breast lump; No nipple discharge Sexual activity:sexually active yes; No sexual complaints; No pain during intercourse Menopausal symptoms:No menopausal symptoms;Inadequacy of lubrication of vaginal mucosa Preventive measures:Encourage self breast examination; Encourage regular exercise; Encourage regular mammograms starting age 40; Followed with yearly pap smears (11/14/2018 Neg pap); Mammogram performed within the past year (10/01/2019 Normal); Up to date on colonoscopy screening (2017 Repeat 10 years); DEXA needs to schedule (07/01/2017 Osteopenia) CANDICE MENENDEZ DO [address], [address], [facility] 12/11/2019 12:15:34 01/09/2021 text/html [facility] Annual GYNRe ported bypatient.History:no gynecologic complaints; no change in interval history Menstrual cycle:Amenorrhea(LAVH/ BSO 2005); postmenopausal Urinary symptoms:No hematuria; No incontinence Vulva:No genital lesion Vagina:Normal vaginal discharge Breast:No breast pain; No breast lump; No nipple discharge Sexual activity:sexually active yes; No sexual complaints; No pain during intercourse Menopausal symptoms:No menopausal symptoms;Inadequacy of lubrication of vaginal mucosa Preventive measures:Encourage self breast examination; Encourage regular exercise; Encourage regular mammograms starting age 40; Followed with yearly pap smears (12/11/2019 Neg pap); Mammogram performed within the past year (10/02/2020 Normal); Up to date on colonoscopy screening (2017 Repeat 10 years); DEXA up to date (10/02/2020 NORMAL) CANDICE MENENDEZ DO [address], [address], [facility] 01/09/2021 11:15:41 02/10/2022 text/html [facility] Annual GYNRe ported bypatient.Menstrual cycle:postmenopausal Urinary symptoms:No hematuria; No incontinence Vulva:No genital lesion Vagina:Normal vaginal discharge Breast:No breast pain; No breast lump; No nipple discharge Sexual activity:No sexual complaints; No pain during intercourse; Normal libido Menopausal symptoms:No menopausal symptoms; Normal vaginal lubrication Psychological symptoms:No depression; No anxiety; No PMDD Preventive measures:Encourage self breast examination; Encourage regular exercise; Encourage regular mammograms starting age 40; Followed with Q3 year pap smear and high risk HPV typing CANDICE MENENDEZ DO [address], [address], [facility] 02/10/2022 11:10:35 05/10/2023 text/html [facility] Annual GYNRe ported bypatient.Menstrual cycle:postmenopausal Urinary symptoms:No hematuria; No incontinence Vulva:No genital lesion Vagina:Normal vaginal discharge Breast:No breast pain; No breast lump; No nipple discharge Sexual activity:No sexual complaints; No pain during intercourse; Normal libido Menopausal symptoms:No menopausal symptoms; Normal vaginal lubrication Psychological symptoms:No depression; No anxiety; No PMDD Preventive measures:Encourage self breast examination; Encourage regular exercise; Followed with pap smear and high risk HPV typing every 3 years; Encourage regular mammograms starting age 40 CANDICE MENENDEZ DO [address], [address], [facility] 05/10/2023 14:09:21 OBGyn Episode No OBEpisode recorded.
--- OUTSIDE RECORDS SUMMARY | 2024-02-07 11:40 | XMS_ITS ---
Author Name [facility] Organization Unknown Results Test Name/Text Value Interpretation Date Range Source Metaneph Free SerPl-mCnc <25 Normal [id number] - [facility] MetanephS SerPl-mCnc 84pg/mL Normal [id number] - [facility] Normetaneph Free SerPl-mCnc 84pg/mL Normal [id number] - [facility] Microalbumin Ur-mCnc 12.5mg/dL Normal [id number] - [facility] Creat Ur-mCnc 131mg/dL Normal [id number] 20 - [address] Albumin/Creat Ur 95mg/gcreat Above high normal [id number] - 30 [facility] Aldost SerPl-mCnc 2ng/dL Normal [id number] - [facility] Renin Plas-cCnc 1.13ng/mL/h Normal [id number] 0.25 - 5. 82 [facility] Aldost/Renin SerPl-Rto 1.8Ratio Normal [id number] 0.9 - 28.9 [facility] BUN/Creat SerPl SEE NOTE: Normal [id number] 6 - 22 Q [facility] Creat SerPl-mCnc 1mg/dL Normal [id number] 0.5 - 1.05 [facility] CO2 SerPl-sCnc 27mmol/L Normal [id number] 20 - 32 QU EST eGFRcr SerPlBld CKD-EPI 2020 62mL/min/1.73m 2 Normal [id number] - [facility] Potassium SerPl-sCnc 4mmol/L Normal [id number] 3.5 - 5.3 [facility] Calcium SerPl-mCnc 9.5mg/dL Normal [id number] 8.6 - 10 .4 [facility] BUN SerPl-mCnc 17mg/dL Normal [id number] 7 - 25 [facility] EST Chloride SerPl-sCnc 100mmol/L Normal [id number] 98 - 11 0 [facility] Glucose SerPl-mCnc 110mg/dL Normal [id number] 65 - 139 [facility] Sodium SerPl-sCnc 135mmol/L Normal [id number] 135 - 146 [facility] AST SerPl-cCnc 17U/L Normal [id number] 10 - 35 QU EST ALT SerPl-cCnc 14U/L Normal [id number] 6 - 29 QU EST Creat SerPl-mCnc 1.36mg/dL Above high normal [id number] 0. 5 - 1.05 [facility] Globulin Ser Calc-mCnc 3.2g/dL(calc) Normal [id number] 1.9 - 3.7 [facility] Albumin/Glob SerPl 1.4(calc) Normal [id number] 1 - 2.5 [facility] eGFRcr SerPlBld CKD-EPI 2020 43mL/min/1.73m 2 Below low normal [id number] - [facility] Potassium SerPl-sCnc 4.3mmol/L Normal [id number] 3.5 - 5.3 [facility] Calcium SerPl-mCnc 9.9mg/dL Normal [id number] 8.6 - 10 .4 [facility] Albumin SerPl-mCnc 4.4g/dL Normal [id number] 3.6 - 5. 1 [facility] Prot SerPl-mCnc 7.6g/dL Normal [id number] 6.1 - 8.1 Q [facility] Sodium SerPl-sCnc 138mmol/L Normal [id number] 135 - 146 [facility] CO2 SerPl-sCnc 24mmol/L Normal [id number] 20 - 32 QU EST Bilirub SerPl-mCnc 0.5mg/dL Normal [id number] 0.2 - 1. 2 [facility] BUN SerPl-mCnc 24mg/dL Normal [id number] 7 - 25 QU EST ALP SerPl-cCnc 79U/L Normal [id number] 37 - 153 [facility] BUN/Creat SerPl 18(calc) Normal [id number] 6 - 22 Q [facility] Chloride SerPl-sCnc 103mmol/L Normal [id number] 98 - 11 0 [facility] Glucose SerPl-mCnc 77mg/dL Normal [id number] 65 - 99 [facility] Platelet # Bld Auto 246Thousand/uL Normal [id number] 14 0 - 400 [facility] Monocytes # Bld Auto 450cells/uL Normal [id number] 200 - 950 [facility] Neutrophils # Bld Auto 2815cells/uL Normal [id number] 1500 - 7800 [facility] Hct VFr Bld Auto 43.6% Normal [id number] 35 - 45 [facility] RBC # Bld Auto 4.32Million/uL Normal [id number] 3.8 - 5 .1 [facility] WBC # Bld Auto 5Thousand/uL Normal [id number] 3.8 - 10. 8 [facility] Eosinophil/leuk NFr Bld Auto 3.8% Normal [id number] [facility] Neutrophils/leuk NFr Bld Auto 56.3% Normal [id number] [facility] MCV RBC Auto 100.9fL Above high normal [id number] 80 - 1 00 [facility] Eosinophil # Bld Auto 190cells/uL Normal [id number] 15 - 500 [facility] Lymphocytes/leuk NFr Bld Auto 29.9% Normal [id number] [facility] Lymphocytes # Bld Auto 1495cells/uL Normal [id number] 850 - 3900 [facility] MCHC RBC Auto-mCnc 33.5g/dL Normal [id number] 32 - 36 [facility] RDW RBC Auto-Rto 12.7% Normal [id number] 11 - 15 [facility] Basophils/leuk NFr Bld Auto 1% Normal [id number] [facility] Basophils # Bld Auto 50cells/uL Normal [id number] 0 - 2 00 [facility] PMV Bld Ben-Jos 11.3fL Normal [id number] 7.5 - 12 .5 [facility] Hgb Bld-mCnc 14.6g/dL Normal [id number] 11.7 - 15.5 [facility] EST MCH RBC Qn Auto 33.8pg Above high normal [id number] 27 - 33 [facility] Monocytes/leuk NFr Bld Auto 9% Normal [id number] [facility] History of Medication Use Medication Directions Dispensed Refills Start Date End Date Stat amlodipine 2.5 mg tablet 05/12/2023 completed Matzim LA 180 mg tablet,extended release TAKE 1 TABLET BY MOUTH EVERY DAY 05/12/2023 completed Eliquis 5 mg tablet TAKE 1 TABLET BY MOUTH TWICE DAILY 05/12/2023 active Bystolic 5 mg tablet 05/12/2023 active Fluzone Quad [id number] (PF) 60 mcg (15 mcg x 4)/0.5 mL IM syringe 05/12/2023 completed diltiazem ER 180 mg capsule,24 hr,extended release Take 1 capsule every day by oral route. 05/12/2023 active estradiol 0.025 mg/24 hr semiweekly transdermal patch APPLY 1 PATCH TO SKIN TWICE A WEEK 05/12/2023 completed Viactiv 500 mg-100 unit-40 mcg chewable tablet 05/12/2023 completed Fluarix Quad (PF) 60 mcg (15 mcg x 4)/0.5 mL IM syringe 05/12/2023 completed codeine 10 mg-guaifenesin 100 mg/5 mL oral liquid 05/12/2023 compl eted Vitamin D2 1,250 mcg (50,000 unit) capsule TAKE 1 CAPSULE BY ORAL ROUTE EVERY WEEK 05/12/2023 completed Fosamax 70 mg/75 mL oral solution TAKE 75 MILLILITER BY ORAL ROUTE EVERY WEEK IN THE MORNING, AT LEAST 30 MIN BEFORE FIRST FOOD, BEVERAGE, OR MEDICATION OF DAY 05/12/2023 completed Shingrix (PF) 50 mcg/0.5 mL intramuscular suspension, kit 05/12/2023 completed metoprolol succinate ER 50 mg tablet,extended release 24 hr TAKE 1 TABLET BY MOUTH EVERY DAY 05/12/2023 completed metoprolol tartrate 50 mg tablet 05/12/2023 completed Bystolic 2.5 mg tablet TAKE 2 TABLET BY ORAL ROUTE EVERY DAY 05/12/2023 active Vivelle 0.05 mg/24 hr transdermal patch APPLY 1 PATCH BY TRANSDERMAL ROUTE 2 TIMES EVERY WEEK 05/12/2023 completed Fluarix Quad (PF) 60 mcg (15 mcg x 4)/0.5 mL IM syringe 05/12/2023 completed desonide 0.05 % topical cream 05/12/2023 active levofloxacin 750 mg tablet TAKE 1 TABLET BY MOUTH EVERY DAY FOR 7 DAYS 05/12/2023 completed Minivelle 0.0375 mg/24 hr transdermal patch APPLY 1 PATCH BY TRANSDERMAL ROUTE 2 TIMES EVERY WEEK 05/12/2023 completed betamethasone, augmented 0.05 % topical cream 05/12/2023 completed Edarbi 40 mg tablet Take 1 tablet every day by oral route. 05/12/2023 active doxycycline hyclate 100 mg tablet 05/12/2023 completed amlodipine 5 mg tablet TAKE 1 TABLET BY MOUTH EVERY DAY 05/12/2023 completed furosemide 20 mg tablet TAKE 1 TABLET BY MOUTH EVERY DAY 05/12/2023 completed Afluria [id number] (PF) 45 mcg(15 mcg x 3)/0.5 mL intramuscular syringe 05/12/2023 completed Cozaar 25 mg tablet TAKE 1 TABLET BY ORAL ROUTE EVERY DAY 05/12/2023 active Zostavax (PF) 19,400 unit/0.65 mL subcutaneous suspension 05/12/2023 active Calcium 500 + D 05/12/2023 compl eted azithromycin 250 mg tablet 05/12/2023 completed Probiotic 10 billion cell capsule 05/12/2023 active losartan 100 mg tablet 05/12/2023 completed estradiol 0.025 mg/24 hr semiweekly transdermal patch APPLY 1 PATCH TO SKIN TWICE A WEEK APPLY 1 PATCH TO SKIN TWICE A WEEK 05/19/2021 completed Edarbi 40 mg tablet Take 1 tablet every day by oral route. Take 1 tablet every day by oral route. 05/19/2021 completed Calcium 500 + D Calcium 500 + D 05/19/2021 completed amlodipine 5 mg tablet TAKE 1 TABLET BY MOUTH EVERY DAY TAKE 1 TABLET BY MOUTH EVERY DAY 05/19/2021 completed Edarbi 40 mg tablet Take 1 tablet every day by oral route. Take 1 tablet every day by oral route. 02/12/2022 completed Allergies Allergen Reaction Severity Comment Documented Date Source Statu s ERYTHROMYCIN 03/22/2012 [facility] complete d MEDICINAL PRODUCT CONTAINING PENICILLIN AND ACTING ANTIBACTERIAL AGENT (PRODUCT) [facility] Problems Problem Status Onset Date Problem Type Date of Resoluti on Source Family history of breast cancer active ProblemAct [facility] Premature beats active 2023-05-[address] [facility] Malignant neoplasm of uterus active ProblemAct [facility] Atrial fibrillation active 2023-05-10 ProblemAct [facility] Immunizations Vaccine Date Source Lot Number Status COVID-19, mRNA, LNP-S, PF, 30 mcg/0.3 mL dose 05/20/2020 [facility] completed COVID-19, mRNA, LNP-S, PF, 30 mcg/0.3 mL dose 04/29/2020 [facility] completed COVID-19, mRNA, LNP-S, PF, 30 mcg/0.3 mL dose 11/30/2020 [facility] completed
== END 2024-02-07 11:39 | disposition home or self-care (01) ==
PROVIDERS: PCP Physician Assistant Medical; Visit Provider Internal Medicine Hypertension Specialist
DX: I12.9 Hypertensive chronic kidney disease with stage 1 through stage 4 chronic kidney disease, or unspecified chronic kidney disease (principal); N18.2 Chronic kidney disease, stage 2 (mild)
CPT/HCPCS: 93790; 99214

== ENCOUNTER → 2024-02-07 11:15 | Outpatient (BNVA) | payer MEDICARE, SELFPAY | PROVIDERS: PCP Physician Assistant Medical; Visit Provider Internal Medicine Hypertension Specialist | DX: I12.9 Hypertensive chronic kidney disease with stage 1 through stage 4 chronic kidney disease, or unspecified chronic kidney disease (principal); N18.9 Chronic kidney disease, unspecified | CPT/HCPCS: 99212 ==

== ENCOUNTER 2024-03-22 10:04 | Outpatient (AMB) | payer MEDICARE, SELFPAY ==
[2024-03-22 10:10] VITALS: BP 200/88; PULSE 80; O2SAT 98; BMI 29.3
--- NOTE | 2024-03-22 10:10 | HO.NEPHOV_ITS ---
Vital Signs 03/22/24 10:10 03/22/24 10:27 Height 5 ft 1 in Weight 155 lb BMI 29.3 BP 200/88 H 190/80 H Blood Pressure Location Rt brachial Rt brachial Position Sitting Sitting Pulse 80 Pulse Source Pulse Oximeter Pulse Oximetry (%) 98 Oxygen Delivery Method Room Air Intake Visit Reasons: CKD/LVM Research Program Manager Required: No Accompanied by: Self / Same As Patient Allergies penicillin G [PENICILLIN G] Allergy (Unknown, Verified 03/22/24 10:12) UNKNOWN Medication List - Last Reconciled 03/22/24 by Harrison Wilson MD apixaban (Eliquis) 5 mg PO BID azilsartan medoxomil (Edarbi) 40 mg PO DAILY diltiazem HCl ER 180 mg PO DAILY escitalopram oxalate 10 mg PO DAILY HPI Comments Details: Kerri is a pleasant 69-year-old woman with a history of hypertension and CKD. She has had hypertension for almost 24 years. Initially she was on amlodipine and Edarbi She developed atrial fibrillation. Amlodipine has been switched to Cardizem. Recently blood pressure has been suboptimal. She has been monitoring of blood pressure at home blood pressure fluctuates anywhere from 130 mm up to 160 mm Hg. Recent blood work revealed a creatinine of 1.4. She had renal ultrasonogram which showed essentially normal-appearing kidneys with normal echogenicity no stones or hydronephrosis. Right kidney was reported as 8.2 cm with the left kidney measuring 10.7. But echogenicity was normal 02/07/2024. Kerri underwent ABP M. She has been monitoring her blood pressure at home. Overall home blood pressure readings are acceptable. No specific complaints 03/22/2024 Home blood pressure readings were reviewed. Overall home readings are acceptable. In the office today blood pressure was significantly elevated due to white coat effect. Physical Exam Vital Signs: Last Vital Signs Pulse 80 03/22/24 10:10 BP 200/88 H 03/22/24 10:10 Pulse Ox 98 03/22/24 10:10 Oxygen Delivery Method Room Air 03/22/24 10:10 BMI result Body Mass Index 29.3 Comfortable Neck supple no JVD. Lungs entry equal no rales. Heart S1-S2 heard no gallop or rub. Abdomen soft nontender. Neuro alert awake oriented. No asterixis. Extremities no edema. Results Reviewed Nephrology Results: Sodium 137 mmol/L (135-145) 01/23/24 Potassium 3.8 mmol/L (3.3-5.1) 01/23/24 Chloride 103 mmol/L (96-108) 01/23/24 Carbon Dioxide 26 mmol/L (22-29) 01/23/24 BUN 15 mg/dL (9-16) 01/23/24 Creatinine 0.98 mg/dL (0.5-1.4) 01/23/24 Calcium 9.3 mg/dL (8.4-10.2) 01/23/24 PTH Intact 133.5 pg/mL (8.7-77.1) H 01/23/24 Urine Protein 30 (1+) mg/dL (Neg-Trace) H 01/23/24 Urine Creatinine 92.30 mg/dL 01/23/24 Assessment & Plan Assessment & Plan (1) HTN (hypertension): Code(s): I10 - Essential (primary) hypertension Category: Medical (2) CKD (chronic kidney disease): Code(s): N18.9 - Chronic kidney disease, unspecified Category: Medical Plan 69-year-old woman hypertension. Kerri has had hypertension for more than 24 years. Based on the 24 hour ABP M she has suboptimal blood pressure with nocturnal dipping. There is clearly a component of white coat effect The office today systolic blood pressure was around 190 mm Hg due to white coat effect There were few low readings during daytime in the range of 104/70 mm Hg. She was asymptomatic Mild CKD Differential diagnosis would include hypertensive nephrosclerosis. Probably age-related nephron loss Recent ultrasonogram did not reveal any obstruction. Other glomerular interstitial disease unlikely Based on ABP M , I would continue with the same antihypertensive medication but changed the timing. She will take diltiazem in the morning and he had ARB in the evening. This should eliminate drops in blood pressure during daytime. She should monitor blood pressure at home Overall home blood pressure readings are acceptable. I have asked her to call me as needed based on home blood pressure readings. Encouraged her to stay on low-sodium diet Continue to avoid nephrotoxic agents including NSAIDs. Okay to add vitamin-D supplementation she will take 1000 units a day Coding Level of Care Code Est Pt Level 4 (56571) Diagnoses HTN (hypertension) I10 CKD (chronic kidney disease) N18.9
[2024-03-22 10:27] VITALS: BP 190/80
--- OUTSIDE RECORDS SUMMARY | 2024-03-22 13:14 | XMS_ITS | Data Portability ---
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 Referred to [facility] for evaluation History of melanoma Referred to [facility] for ongoing surveillance Paroxysmal atrial fibrillation Plan in place with cardiology HTN, labile CKD 2/[address] neph[address] Dr Wilson H/O elevated LFTs/NAFLD Negative eval Dr Whitehead per pt Anxiety Well-controlled Lexapro 10 Erythrocytosis/po lycythemia Followed by hematology Dr Montgomery History of uterine adenocarcinoma S/P AMANDA/BSO Patient is in agreement with the current plan of care and all questions were answered. Patient agreed to call immediately or go straight to the emergency room with any new or worsening symptoms, or any symptoms that patient or others find worrisome; patient will proceed to the ER immediately if unable to reach our office Patient will follow up if no improvement after implementing care plan above [email or web address] Not available 03/18/2024 21:05:14 Plan of Treatment Reminders Order Date Submit Date Provider Last Modified By Organization Details Last Modified Time Details Appointments PHYSICAL 2025 11:00A M VENUS Diaz Not available Not available Not available Lab vitamin D, 25-hydro xy, total, serum 2023 024 [id number] [employer] [facility], [address], [place], [address], 03/03/2024 18:05:09 PTH (parathy roid hormone) , intact + calcium, serum or plasma 2023 024 [employer] [facility], [address], [place], [address], 03/03/2024 18:05:09 Referral None recorded . Procedures None recorded . Surgeries None recorded . Imaging None recorded . Medication Orders None recorded . Patient TargetsNo targets recorded. Patient InstructionsNo instructions recorded. Reason for Referral None Reported. Results Created Date Observation Date Name Description Value Unit Range Abnormal Flag Note LastModifiedBy Organization Detail LastModifiedTime 03/21/1903/21/2024 imagi ng/di agnos tic resul t No observ ation record ed. [facility] Not Available 2024 12:14:38 03/21/1903/21/2024 imagi ng/di agnos tic resul t No observ ation record ed. [facility] [address], [place], [address], 03/21/2024 11:46:44 03/21/1903/21/2024 imagi ng/di agnos tic resul t No observ ation record ed. [facility] ([facility]) [address], [place], [address], 03/21/2024 13:21:35 Result Notes None recorded. Problems Name Problem SNOMED Code Status Onset Date Resolution Date Notes Provider Name and Address Organization Details Recorded Time Chronic kidney disease stage 2 704159729 Active 2024 VENUS Diaz [address] [place] [address], , [facility] [employer] [facility] 21:07:44 Anxiety 59228612 Active 2024 VENUS Diaz [address] [place] [address], , [place] [facility] 21:07:45 History of Malignant melanoma 012274816 Active 2024 VENUS Diaz [address], [place], [address] , [place] [facility] 21:07:49 Non-alcoholic fatty liver disease Active 2024 VENUS Diaz [address], [place], [address] , [place] [facility] 21:07:50 Erythrocytosi s 728635130 Active 2024 VENUS Diaz [address], [place], [address] , [place] [facility] 21:07:51 History of malignant neoplasm of uterine body 546511130 Active 2024 VENUS Diaz [address], [place], [address] , [place] [facility] 21:07:54 Paroxysmal atrial fibrillation 485252345 Active 2024 VENUS Diaz [address], [place], [address] , [place] [facility] 21:07:56 Vitamin D deficiency 52700519 Active 2024 VENUS Diaz [address], [place], [address] , [facility] 21:07:57 Labile essential hypertension 316854321 Active 2024 VENUS Diaz [address] [place], [address] , [place] [facility] 21:07:58 Problem Notes None recorded. Procedures Surgical History None recorded. Imaging Results Imaging Date Name Status LastModified by [employer] [facility] Details LastModified Time 03/21/2024 imaging/diagn ostic result active [facility] Information not available 03/21/2024 12:14:38 03/21/2024 imaging/diagn ostic result active [facility] [address], [place], [address], 03/21/2024 11:46:44 03/21/2024 imaging/diagn ostic result active [facility] ([facility]) [address], [place], [address], 03/21/2024 13:21:35 Procedure Notes None recorded. Medical Equipment None Reported. Medications Name Sig Start Date Stop Date Status Note LastModified by Organization Details LastModified Time chlorthalidon e 25 mg tablet 02/19 completed Not Available Not Available Not Available amlodipine 5 mg tablet 02/19 completed Not Available Not Available Not Available lorazepam 0.5 mg tablet active Not Available Not Available No t Available furosemide 20 mg tablet TAKE 1 TABLET BY MOUTH EVERY DAY 02/19 completed Not Available Not Available Not Available levofloxacin 750 mg tablet TAKE 1 TABLET BY MOUTH EVERY DAY FOR 7 DAYS 02/19 completed Not Available Not Available Not Available escitalopram 10 mg tablet active Not Available Not Available Not Available diltiazem ER 180 mg tablet,extend ed release 24 hr TAKE 1 TABLET BY MOUTH EVERY DAY active Not Available Not Available No t Available Edarbi 40 mg tablet Take 1 tablet every day by oral route. 2024 active Not Available Not Available Not Avai lable Eliquis 5 mg tablet TAKE 1 TABLET BY MOUTH TWICE DAILY active Not Available Not Available No t Available Vitals Date Recorded Body weight Body mass index (BMI) Body height Oxygen saturation Oxygen saturation in Arterial blood by Pulse oximetry Heart rate Body temperature Systolic blood pressure Diastolic blood pressure Provider Name and Address Organization Details Last Updated DateTime 4 27193.6 3 g 28.9 kg/m2 154.94 cm 99 % 99 % 67 /min 96.4 [degF] 142 mm[Hg] 80 mm[Hg] [facility] 4 11:35:39 Social History None recorded. Functional Status None recorded. Mental Status None recorded. Family History Nothing Reported. Medical History No medical history recorded. Gynecological HistoryNo gynecological history recorded. Obstetrics History GPAL:G 0 P 0 0 0 0 Past Encounters Encounter ID Performer Location Encounter Start Date Encounter Closed Date Diagnosis/Indication Diagnosis SNOMED-CT Code Diagnosis ICD10 Code Diagnosis Note [id number] VENUS Diaz [id number] [address] [place] [phone] 02/20/2024 11:20:14 02/20/2024 12:46:40 Active or passive immunization 400093872 Z23 Adult heal th examination 438901136 Z00.00 Labile ess ential hypertension 429758786 I10 Vitamin D deficiency 347 69538 E55.9 Paroxysmal atrial fibrillation 963244880 I48.0 History of malignant neoplasm of uterine body 403227279 Z85.42 Erythrocytosis 692257290 D75.1 Non-alcoho lic fatty liver disease 2655850463 K76.0 History of Malignant melanoma 351644058 Z85.89 Anxiety 47825270 F41.9 Chronic ki dney disease stage 2 171896893 N18.2 Hypoglycemia 282533286 E 16.2 Health Concerns Section Related Observation LastModified by Organization Detai ls LastModified Time None Recorded Concern Status LastModified by Organization Details LastModified Time None Recorded Advance Directives Directive None Recorded Payers Encounter Date Sequence Insurance Name Policy Number Policy [place] Covered Member ID [place] Member ID Guarantor Name 02/20/2024 2 [employer] (MEDICARE SUPPLEMENT) Kerri Stafford [id number] Kerri Stafford 02/20/2024 1 MEDICARE B-CT: NGS Kerri Stafford [id number] Kerri Stafford Notes Date Note Type Note Provider Name and Address Organization Details Recorded Time 02/20/2024 text/html CPXMarriedRetnatalia d (worked for , field marketing director, also retired)Smoked in college x 1 yearEtoh 1-4/weekNo cannabisNo rec drugs1 son 352 cats PSHTAH/BSO for endometrial CA over 20 years agoWide excision MM 2000sLap terra ~25 years agoCTR B Family historyFather 80 cardiacMother 80 cardiacBrother healthySon healthy VENUS Diaz [address] [place] [address],[facility], [place], [address], [facility] 03/18/2024 21:09:01 OBGyn Episode No OBEpisode recorded.
--- OUTSIDE RECORDS SUMMARY | 2024-03-22 13:14 | XMS_ITS | Clinical Summary ---
Author Organization [facility] [place] [address] Phone Care Team Providers Care Item Processing Clerk Name Role Phone Kita Guy Primary Care Provider [phone] Surgical History Surgery Date Site/Laterality Comments HYSTERECTOMY 2003 N/A PROCEDURE:HYSTERECTOMY TOTAL ABDOMINAL HYSTERECTOMY W/ BILATERAL SALPINGOOPHORECTOMY 2003 PROCEDURE:TOTAL ABDOMINAL HYSTERECTOMY W/ BILATERAL SALPINGOOPHORECTOMY CHOLECYSTECTOMY PROCEDURE:CHOLECYSTECTOMY OTHER SURGICAL HISTORY Right PROCEDURE:melanoma removed;COMMENT:leg COLONOSCOPY PROCEDURE:COLONOSCOPY CARPAL TUNNEL RELEASE Bilateral PROCEDURE:CARPAL TUNNEL RELEASE COLONOSCOPY 10/04/2016 N/A PROCEDURE:COLONOSCOPY;COMMENT :Procedure: COLONOSCOPY; Surgeon: Víctor Fleming MD; Location: [facility]; Service: General; Laterality: N/A; Medical History Medical History Date Comments Fibrocystic breast 07/27/13 DX:Fibrocysti c breast;COMMENT:DENSE BR Hypertension DX:Hypertension Osteoporosis DX:Osteoporosis BRCA negative DX:BRCA negative ;COMMENT:1 and 2 Inconclusive mammogram due t o dense breasts 08/29/2015 DX:Inconclusive mammogram du e to dense breasts Family history of breast cancer 08/29/2015 DX:Family history of breast cancer Kidney stone DX:Kidney stone; COMMENT:26 years ago 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 DX:Melanoma in situ of lower leg (HCC);COMMENT:RT LOWER LEG Visit for screening mammogram 09/23/2017 DX :Visit for screening mammogram Family History Medical History Relation Name Comments Polycythemia Father Esophageal cancer Mother's Brother 1 Esophageal cancer Mother's Brother 2 Breast cancer Mother's Sister 1 60 Uterine cancer Mother's Sister 2 UT CA Breast cancer Paternal Grandmother 40 and 50 bilat breast ca BRCA 1/2 Neg Hx Bladder Cancer Neg Hx Colon cancer Neg Hx Endometrial cancer Neg Hx Ovarian cancer Neg Hx Pancreatic cancer Neg Hx Relation Name Status Comments Father Mother's Brother 1 Mother's Brother 2 Mother's Sister 1 60 Alive Mother's Sister 2 UT CA Paternal Grandmother Social History Tobacco Use Types Packs/Day Years Used Date Smoking Tobacco: Former Cigarettes Q uit: 02/21/1975 Smokeless Tobacco: Never Alcohol Use Standard Drinks/Week Comments Yes 3 (1 standard drink = 0.6 oz pur e alcohol) Sex and Gender Information Value Date Recorded Sex Assigned at Not on file Gender Identity Not on file Sexual Orientation Not on file Obstetrics History Last Filed Vital Signs Vital Sign Reading Time Taken Comments Blood Pressure 163/74 11/14/2023 12:10 PM EDT Pulse 63 11/14/2023 11:44 AM EDT Temperature - - Respiratory Rate - - Oxygen Saturation - - Inhaled Oxygen Concentration - - Weight 69.9 kg (154 lb) 11/14/2023 11:44 AM EDT Height 154.9 cm (5' 1 ) 02/01/2023 10:58 AM EST Body Mass Index 29.1 02/01/2023 10:58 AM EST Plan of Treatment Health Maintenance Due Date Last Done Comments DTaP,Tdap,and Td Vaccines (1 - Tdap) 01/09/1975 RSV Immunization Patients 60+ Years Old (1 - Risk 60-74 years 1-dose series) 2016 Zoster Vaccines (2 of 3) 08/24/2017 06/29/2017 Pneumococcal Vaccine: 65+ Years (1 of 1 - PCV) 01/09/2021 Cholesterol Screening (Lipid Panel) 01/29/2022 Colorectal Cancer Screening: Colonoscopy 01/29/2022 Depression Screening 01/29/2022 Falls Risk Assessment 01/29/2022 Hepatitis C Screening 01/29/2022 Medicare Annual Wellness Visit 01/29/2022 Social Influencers of Health Screening 01/29/2022 COVID-19 Vaccine ( season) 2023 07/03/2021, 11/30/2020, 05/20/2020, Additional history exists Influenza Vaccine (#1) 2023 2, 11/30/2020, 11/05/2019, Additional history exists Hypertension/CHF/CAD Annual BMP Blood Test 11/15/2024 11/16/2023, 11/30/2022 Breast Cancer Screening 01/24/2025 01/25/20 23, 12/01/2021, 10/02/2020, Additional history exists Osteoporosis Screening (Bone Density Screening) 10/02/2030 10/02/2020, 07/01/2017 HIB Vaccines Aged Out No longer eligi ble based on patient's age to complete this topic HPV Vaccines Aged Out No longer eligi ble based on patient's age to complete this topic Hepatitis A Vaccines Aged Out No long er eligible based on patient's age to complete this topic Hepatitis B Vaccines Aged Out No long er eligible based on patient's age to complete this topic IPV Vaccines Aged Out No longer eligi ble based on patient's age to complete this topic MMR Vaccines Aged Out No longer eligi ble based on patient's age to complete this topic Meningococcal ACWY Vaccine Aged Out N o longer eligible based on patient's age to complete this topic RSV Immunization Patients Under 20 months Aged Out No longer eligible based on patient's age to complete this topic Varicella Vaccines Aged Out No longer eligible based on patient's age to complete this topic Procedures Procedure Name Priority Date/Time Associated Diagnosis Comments MAMMOGRAM SCREENING BILATERAL 3D AYLEEN WITH CAD Routine 01/24/2023 2:56 PM EST Encounter for screening mammogram for malignant neoplasm of breast BONE DENSITY STUDY Routine 10/02/2020 10 :05 AM EDT Asymptomatic menopausal state Encounter for screening for osteoporosis from Last 3 Months or Most Recently Relevant to Health Maintenance Results * MAMMOGRAM SCREENING BILATERAL 3D AYLEEN WITH CAD (01/24/2023 2:56 PM EST) Anatomical Region Laterality Modality Mammography 12/21/2022 10:4 4 AM EDT Narrative 01/25/2023 10:00 AM EST This is a summary report. The complete report is available in the patient's medical record. If you cannot access the medical record, please contact the sending organization for a detailed fax or copy. EXAM PERFORMED: ??MAMMOGRAM SCREENING BILATERAL 3D AYLEEN WITH CAD EXAM HISTORY: Screening Exam. No palpable abnormality. COMPARISON: 2021, 2019 TECHNIQUE: Bilateral full field digital mammography with synthesized (2D) the and Tomosynthesis (3-D) was performed using standard CC and MLO projections. Mammogram was interpreted in correlation with CAD and Tomosynthesis. BREAST DENSITY: The breast tissue is heterogeneously dense, which could obscure detection of small masses (approximately 51-75% glandular, C) FINDINGS: No suspicious masses, grouped microcalcifications, or architectural distortion are identified. Typically benign asymmetries. No axillary lymphadenopathy. IMPRESSION: 1. No mammographic evidence of malignancy 2. Heterogeneously dense breast tissue BI-RADS Category 2: Benign 3342F RECOMMENDATION: Routine mammography screening. The results of this examination have been communicated to the patient through a lay letter in accordance with the Mammography Quality Standards Act. Report reviewed and signed by : Dr. Jone Spear MD on 01/25/2023 10:00 AM. Workstation Name - [id number] Procedure Note Jone Spear MD - 03/25/2023 This is a summary report. The complete report is available in thepatient's medical record. If you cannot access the medical record, pleasecontact the sending organization for a detailed fax or copy. EXAM PERFORMED: MAMMOGRAM SCREENING BILATERAL 3D AYLEEN WITH CAD EXAM HISTORY: Screening Exam. No palpable abnormality. COMPARISON: 2019 TECHNIQUE: Bilateral full field digital mammography with synthesized (2D)the and Tomosynthesis (3-D) was performed using standard CC and MLOprojections. Mammogram was interpreted in correlation with CAD andTomosynthesis. BREAST DENSITY: The breast tissue is heterogeneously dense, which couldobscure detection of small masses (approximately 51-75% glandular, C) FINDINGS: No suspicious masses, grouped microcalcifications, orarchitectural distortion are identified. Typically benign asymmetries. Noaxillary lymphadenopathy. IMPRESSION: 1. No mammographic evidence of malignancy 2. Heterogeneously dense breast tissue BI-RADS Category 2: Benign 3342F RECOMMENDATION: Routine mammography screening. The results of this examination have been communicated to the patientthrough a lay letter in accordance with the Mammography Quality StandardsAct. Report reviewed and signed by : Dr. Jone Spear MD on 01/25/2023 10:00AM. Workstation Name - [id number] Mikel Edward DO IMG BI PROCEDURES * BONE DENSITY STUDY (10/02/2020 10:05 AM EDT) Anatomical Region Laterality Modality Bone Densitometr y 09/08/2020 12:2 3 PM EDT Narrative 10/03/2020 1:38 PM EDT BONE DENSITY STUDY INDICATION: Post-menopausal, encounter for screening for osteoporosis Study acquired on a Buzzni (DEXA) densitometer. The lowest bone density of the femoral neck and total hip measurements will typically be reported. COMPARISON: 2017. L1-L4- Bone Density: 1.444 g/cm2 T score*: 2.2 % of young adult reference population: 122 % change from prior: +5.5 Left femoral neck- Bone Density: 0.747 g/cm2 T score*: -2.1 % of young adult reference population: 72 % change from prior: +4.5 FRAX : 10 year probability of fracture- Major osteoporotic 10.6% Hip 1.7% CONCLUSION: 1. ??Normal lumbar spine bone density. 2. ??Left femoral neck osteopenia, improved. * World Health Organization Definition of Osteoporosis and Osteopenia Normal = T score at or above -1.0 SD Osteopenia = T score between -1.0 and -2.5 SD Osteoporosis = T score at or below -2.5 SD [place] ([employer]ES (ages 20-30)/[employer] (ages 20-40) reference population for spine and femur. Report reviewed and signed by : Dr. Jonny Fry MD on 10/03/2020 1:38 PM. Workstation Name - [id number] Procedure Note Jonny Fry MD - 02/13/2022 BONE DENSITY STUDY INDICATION: Post-menopausal, encounter for screening for osteoporosis Study acquired on a Buzzni (DEXA) densitometer. The lowest bonedensity of the femoral neck and total hip measurements will typically bereported. COMPARISON: 2017. L1-L4- Bone Density: 1.444 g/cm2 T score*: 2.2 % of young adult reference population: 122 % change from prior: +5.5 Left femoral neck- Bone Density: 0.747 g/cm2 T score*: -2.1 % of young adult reference population: 72 % change from prior: +4.5 FRAX : 10 year probability of fracture- Major osteoporotic 10.6% Hip 1.7% CONCLUSION: 1. Normal lumbar spine bone density. 2. Left femoral neck osteopenia, improved. * World Health Organization Definition of Osteoporosis and Osteopenia Normal = T score at or above -1.0 SD Osteopenia = T score between -1.0 and -2.5 SD Osteoporosis = T score at or below -2.5 SD [place] ([employer] (ages 20-30)/[employer] (ages 20-40) referencepopulation for spine and femur. Report reviewed and signed by : Dr. Jonny Fry MD on 10/03/2020 1:38PM. Workstation Name - [id number] Mikel Edward DO IMG DXA PROCEDURE S from Last 3 Months or Most Recently Relevant to Health Maintenance Care Teams Item Processing Clerk Relationship Specialty Start Date End Date Kita Guy PA PCP - General 08/06/23
--- OUTSIDE RECORDS SUMMARY | 2024-03-22 13:15 | XMS_ITS | Data Portability ---
Author Organization [place] - [facility], [facility] Address [address] [place] [address] Care Team Providers Care Wooden Frame Builder Name Role Phone EMERYSHARYN Primary Care Provider Assessment No assessment recorded. Plan of Treatment Reminders Order Date Submit Date Provider Last Modified By Organization Details Last Modified Time Details Appointments None recorded. Lab urinalysi s, dipstick 2018 019 In-Office Order, Internal Use Only DO Not Attach Compendium DO Not Attach Compendium, Do Not Delete/merge, [id number] 15:32:50 pap, IG + reflex HPV 2018 019 [facility], [address] [place] [address], [id number] 9 07:48:10 pap, IG + reflex HPV 2019 020 [facility], [address] [place] [address], [address] 0 10:09:56 urinalysi s, dipstick 2019 020 In-Office Order, Internal Use Only DO Not Attach Compendium DO Not Attach Compendium, Do Not Delete/merge, [id number] 11:07:11 pap, IG + reflex HPV 2020 021 [facility], [address] [place] [address], [address] 1 09:18:07 pap, IG + reflex HPV 2021 022 [facility], [address] [place], [address] 2 10:48:24 pap, IG + reflex HPV 2023 024 [facility], [address] [place], [address] 4 11:10:22 Referral None recorded. Procedures None recorded. Surgeries None recorded. Imaging MAMMO, screening , digital, bilateral , w/ CAD 2018 019 [facility], [address], [place], [address], 9 08:24:48 MAMMO, screening , digital, bilateral , w/ CAD 2019 020 [facility], [address], [address], [place], [address], 1 11:10:08 DEXA, axial skeleton 2019 020 [facility], [address], [place], [address], 1 14:04:32 MAMMO, screening , digital, bilateral , w/ CAD 2020 021 [facility], [address], [place], [address], 2 11:24:59 US, breast, bilateral 2020 021 [facility], [address], [place], [address], 2 14:09:09 MAMMO, screening , digital, bilateral , w/ CAD 2021 022 [facility], [address], [place], [address], 3 10:04:49 US, breast, bilateral , complete 2021 [email or web address] [facility], [address], [place], [address], 2 11:21:06 MAMMO, screening , digital, bilateral , w/ CAD 2023 024 [facility], [address], [place], [address], 5 11:45:47 US, breast, bilateral , complete 2023 024 [facility], [address], [place], [address], 5 13:14:07 DEXA, axial skeleton 2023 024 [facility], [address], [place], [address], 5 12:04:54 Medication Orders None recorded. Patient TargetsNo targets recorded. Patient Instructions Encounter Date Encounter Id Patient Instructions Last Modified By Organization Details Last Modified Time 11/14/2018 [id number] mammogram: about this test Not available 11/14/2018 15:32:50 tips to help you stay healthy Not available 11/14/2018 15:32:50 [facility] completed and reviewed with patient. Negative findings. Not available 11/14/2018 15:26:15 12/11/2019 [id number] mammogram: about this test Not available 12/11/2019 11:07:11 tips to help you stay healthy Not available 12/11/2019 11:07:11 [facility] screening completed and reviewed with patient. Negative findings. Not available 12/11/2019 11:03:04 01/09/2021 [id number] tips to help you stay healthy Not available 01/09/2021 11:15:05 [facility] screening completed and reviewed with patient. Negative findings. atul Not available 01/09/2021 11:15:16 02/10/2022 [id number] mammogram: about this test atul Not available 02/10/2022 11:12:13 tips to help you stay healthy atul Not available 02/10/2022 11:12:13 [facility] screening completed and reviewed with patient. Negative findings. atul Not available 02/10/2022 11:07:35 05/10/2023 [id number] [facility] screening completed and reviewed with patient. Negative findings. atul Not available 05/10/2023 13:45:23 Reason for Referral None Reported. Results Created Date Observation Date Name Description Value Unit Range Abnormal Flag Note LastModifiedBy Organization Detail LastModifiedTime 12/11/19 20 12/11/2019 urina lysis , dipst ick Interpretati on negati ve Not Available In-Office Order Internal Use Only DO Not Attach Compendium DO Not Attach Compendium, Do Not Delete/merge, [id number] 12/11/2019 10:39:32 11/15/19 19 11/14/2018 urina lysis , dipst ick Interpretati on negati ve Not Available In-Office Order Internal Use Only DO Not Attach Compendium DO Not Attach Compendium, Do Not Delete/merge, [id number] 11/14/2018 14:52:34 11/15/19 19 11/14/2018 pap, IG + refle x HPV report Report Final Gynec ologi bobby Cytol ogy Repor t ----- ----- ----- ----- ----- ----- ----- ----- ----- ----- ----- ----- ThinP rep Pap Test with HPV Refle x SPECI MEN ADEQU ACY: SATIS FACTO RY FOR EVALU ATION . INTER PRETA TION: NEGAT RAY FOR INTRA EPITH ELIAL AMBER N OR LIYAH MCGINNIS . Note: This Pap test was proce ssed by the adan smith, but requi red kedar lópez Elect edwin álvarez: Tawana Chong, [place] (ASCP ) ----- ----- ----- ----- ----- ----- ----- ----- ----- ----- ----- ----- CLINI BOBBY INFOR MATIO N: LMP: NG Speci men Sourc e: Vagin al Previ ous Pap Date: 11/11 CPT Codes : 72400 ICD Codes : Z01.4 19 Not Available [facility] [address] [place], [address] 11/16/2018 07:48:10 12/11/19 20 12/11/2019 pap, IG + refle x HPV report Report Final Gynec ologi bobby Cytol ogy Repor t ----- ----- ----- ----- ----- ----- ----- ----- ----- ----- ----- ----- ThinP rep Pap Test with HPV Refle x SPECI MEN ADEQU ACY: SATIS FACTO RY FOR EVALU ATION . INTER PRETA TION: ROSHAN BELL FOR INTRA EPITH PAYTON Franklin OR LIYAH MCGINNIS . Elect edwin Vasquez d: Seema Bobo, [place] (ASCP ) ----- ----- ----- ----- ----- ----- ----- ----- ----- ----- ----- ----- CLINI BOBBY INFOR MATIO N: LMP: NG Speci men Sourc e: Vagin al Previ ous Pap Date: 11/14 CPT Codes : 28808 ICD Codes : Z01.4 19 Not Available [facility] [address] [place], [address] 12/14/2019 10:09:56 01/10/20 21 01/09/2021 THINP REP [...] Clini bobby Histo ry: HY Speci men Sourc e: Yobaniin al CPT Codes : 68238 ICD Codes : Z01.4 19 Not Available [facility] [address] [place] [address], [address] 01/19/2021 09:18:07 02/11/20 22 02/20/2022 THINP REP TIS PAP W/REF L HPV MRNA E6/E7 clinical information: normal HYST Not Available [facility] [address], [address], 02/20/2022 10:48:24 02/11/20 22 02/20/2022 THINP REP TIS PAP W/REF L HPV MRNA E6/E7 LMP: normal NONE GIVEN Not Available [facility] [address], [address], 02/20/2022 10:48:24 02/11/20 22 02/20/2022 THINP REP TIS PAP W/REF L HPV MRNA E6/E7 prev. Pap: normal 01/09 Not Available [facility] [address], [address], 02/20/2022 10:48:24 02/11/20 22 02/20/2022 THINP REP TIS PAP W/REF L HPV MRNA E6/E7 prev. BX: normal NONE GIVEN Not Available [facility] [address], [place], [address], 02/20/2022 10:48:24 02/11/20 22 02/20/2022 THINP REP TIS PAP W/REF L HPV MRNA E6/E7 source: normal Vagin a Not Available [facility] [address], [place], [address], 02/20/2022 10:48:24 02/11/20 22 02/20/2022 THINP REP TIS PAP W/REF L HPV MRNA E6/E7 statement of adequacy: normal SATIS FACTO RY FOR EVALU ATION Parti ally obscu ring infla mmati on Not Available [facility] [address], [place], [address], 02/20/2022 10:48:24 02/11/20 22 02/20/2022 THINP REP TIS PAP W/REF L HPV MRNA E6/E7 interpretati on/result: normal Negat ray for intra epith elial lesio n or malig tarsha . Not Available [facility] [address], [place], [address], 02/20/2022 10:48:24 02/11/20 22 02/20/2022 THINP REP TIS PAP W/REF L HPV MRNA E6/E7 comment: normal This Pap test has been evalu ated with compu ter paloma gita techn ology . Not Available [facility] [address], [place], [address], 02/20/2022 10:48:24 02/11/20 22 02/20/2022 THINP REP TIS PAP W/REF L HPV MRNA E6/E7 cytotechnolo gist: normal MAA, CT( CP) CT scree sylvia locat ion: [facility] [address] [place] [address] Not Available [facility] [address], [address], 02/20/2022 10:48:24 02/11/20 22 02/20/2022 THINP REP TIS PAP W/REF L HPV MRNA E6/E7 review cytotechnolo gist: normal CMG, CT( CP) CT scree sylvia locat ion: [facility] [address] [place], [place] [address] Not Available [facility] [address], [address], 02/20/2022 10:48:24 02/11/20 22 02/20/2022 THINP REP [...] clini bobby infor matio n. Not Available [facility] [address], [address], 02/20/2022 10:48:24 05/10/19 24 05/10/2023 THINP REP [...] ous Pap Date: 02/10 CPT Codes : 76829 ICD Codes : Z01.4 19 Not Available [facility] [address] [place], [address] 05/13/2023 11:10:22 10/01/19 20 10/01/2019 MAMMO , scree sylvia, digit al, bilat eral, w/ CAD No observ ation record ed. [address], [address], 10/03/2019 10:36:33 10/01/19 20 10/01/2019 US, jessica stauffer eramerry No observ ation record ed. [facility] (Department Of Radiology/Talya ging) [address] [place] [address], [address], 10/03/2019 10:36:33 10/03/19 21 10/02/2020 MAMMO , scree sylvia, digit al, bilat eral, w/ CAD No observ ation record ed. [email or web address] [facility] (Imaging) [address] [place] [address], [address], 10/02/2020 12:07:26 10/03/19 21 10/02/2020 , breas t, bilat eral No observ ation record ed. [facility] (Imaging) [address] [place], [address], 10/06/2020 13:52:06 10/04/19 21 10/02/2020 DEXA, axial skele ton No observ ation record ed. [facility] (Imaging) [address] [place], [address], 10/06/2020 13:52:06 12/02/19 22 12/01/2021 US, breas t, bilat eral No observ ation record ed. [email or web address] [facility] ([facility]) [address] [facility], [place], [address], 12/02/2021 11:35:39 12/04/19 22 12/01/2021 MAMMO , scree sylvia, digit al, bilat eral, w/ CAD No observ ation record ed. [facility] ([facility]) [address] [facility], [place], [address], 12/04/2021 12:33:03 01/26/20 23 01/24/2023 MAMMO , scree sylvia, digit al, bilat eral, w/ CAD No observ ation record ed. [facility] [address] [facility] [address], [place], [address], 01/25/2023 15:34:42 03/21/19 25 03/21/2024 US, breas t, bilat eral, compl ete No observ ation record ed. [facility] ([facility]) [address], [place], [address], 03/21/2024 13:14:07 03/21/19 25 03/21/2024 MAMMO , scree sylvia, digit al, bilat eral, w/ CAD No observ ation record ed. [facility] [address], [place], [address], 03/21/2024 11:45:47 03/21/19 25 03/21/2024 DEXA, axial skele ton No observ ation record ed. GATO [facility] ([facility]) [address], [place], [address], 03/21/2024 12:04:54 Result Notes None recorded. Problems Name Problem SNOMED Code Status Onset Date Resolution Date Notes Provider Name and Address Organization Details Recorded Time Malignant neoplasm of uterus 941501404 Active CANDICE MENENDEZ DO [address] [facility], [place], [address], [facility] 6 09:55:30 Family history of breast cancer 898005092 Active CANDICE MENENDEZ DO [address], [address] [place] [address], [place], [address], [facility] 6 09:55:30 Atrial fibrillation 69513348 Active 2023 [facility] 4 13:21:16 Premature beats 11413184 Active 2023 [facility] 4 13:22:08 Notes:06/14/2013: BRCA2 GENE MUTATION NEGATIVE ([id number]) Problem Notes None recorded. Procedures Surgical History Date Name Laterality Status Provider Name and Address Organization Details Recorded Time 05/10/19 24 [id number] completed CANDICE MENENDEZ DO [address] [facility], [place], [address], [facility] 05/10/2023 14:08:37 01/25/20 23 Date of Last Mammogram completed Alexis Martin [facility] 05/10/2023 13:25:01 02/11/20 22 N9L-MWN completed CANDICE MENENDEZ DO [address], [place], [address], [place] - [facility] 02/10/2022 11:07:56 02/11/20 [id number]-[id number] completed CANDICE MENENDEZ DO [address], [place], [address], [place] [facility] 02/10/2022 11:07:58 02/11/20 22 Date of [facility] [place] [facility] 05/10/2023 13:24:40 01/10/20 L4L-TOZ completed CANDICE MENENDEZ DO [address], [place], [address], [place] [facility] 01/09/2021 11:14:18 01/10/20 21 W5V-PLULHBP completed CANDICE MENENDEZ DO [address], [place], [address], [place] [facility] 01/09/2021 11:14:20 12/11/19 20 M3N-ECF completed Carline Ernandez [place] - [facility] 12/11/2019 06:50:07 12/11/19 20 E9J-XAAZBZH completed CANDICE MENENDEZ DO [address], [place], [address], [place] [facility] 12/11/2019 11:02:15 11/15/19 19 R2L-CRV completed Carline Ernandez [place] - [facility] 11/14/2018 15:08:55 11/15/19 19 R9D-FZODYQU completed CANDICE MENENDEZ DO [address], [place], [address], [place] [facility] 11/14/2018 15:24:36 11/12/19 18 P3P-ABO completed Carline Ernandez [facility] 11/11/2017 14:03:42 11/12/19 18 Q6H-UUHXKAZ completed CANDICE MENENDEZ DO [address], [place], [address], [place] [facility] 11/11/2017 14:28:05 01/22/20 17 Colonoscopy completed Carline Ernandez [place] - [facility] 11/11/2017 14:00:52 12/24/19 17 Date of Last Colonoscopy completed Carline Ernandez [place] - [facility] 11/11/2017 14:01:25 10/14/19 17 X8B-ZAR completed CANDICE MENENDEZ DO [address], [place], [address], [facility] - [facility] 10/13/2016 15:20:24 10/14/19 17 S5J-ZULLUE completed CANDICE MENENDEZ DO [address], [place], [address], [place] [facility] 10/13/2016 15:20:24 10/14/19 17 L3B-IDV completed CANDICE MENENDEZ DO [address], [place], [address], [facility] - [facility] 10/13/2016 15:20:24 10/14/19 17 R1C-SDWEDNH completed CANDICE MENENDEZ DO [address], [place], [address], [facility] - [facility] 10/13/2016 15:20:24 10/14/19 17 D9L-BHHOOK completed CANDICE MENENDEZ DO [address], [place], [address], [place] [facility] 10/13/2016 15:20:24 08/26/19 16 Q2P-CII completed CANDICE MENENDEZ DO [address], [place], [address], [place] [facility] 08/26/2015 09:52:36 08/26/19 16 S7P-VUVHQZ completed CANDICE MENENDEZ DO [address], [place], [address], [place] [facility] 08/26/2015 09:52:36 08/26/19 16 W3W-JJB completed CANDICE MENENDEZ DO [address], [place], [address], [place] [facility] 08/26/2015 09:52:36 08/26/19 16 Z5X-XAT completed CANDICE MENENDEZ DO [address], [place], [address], [place] [facility] 08/26/2015 09:52:36 08/26/19 16 N2M-CTPDAAS completed CANDICE MENENDEZ DO [address], [place], [address], [place] [facility] 08/26/2015 09:52:36 08/26/19 16 Q1X-INLNQW completed CANDICE MENENDEZ DO [address], [place], [address], [facility] - [facility] 08/26/2015 09:52:36 07/23/19 10 [facility] completed TERRANCE RODRIGUEZ MD [address], [place], [address], [facility] - [facility] 07/23/2014 12:28:00 01/26/20 06 Hysterectomy with removal of the ovaries completed Carline Ernandez [place] [facility] 07/23/2014 11:40:16 02/21/19 05 Cholecystectomy completed Carline Ernandez [place] [facility] 07/23/2014 11:40:16 Conization of cervix completed Carline Ernandez [place] [facility] 07/23/2014 11:40:16 LEEP completed Not Available [facility] 08/10/2014 02:57:11 Hysterectomy completed Not Available [facility] 08/10/2014 02:57:11 Imaging Results Imaging Date Name Status LastModified by [facility] Details LastModified Time 10/01/2019 MAMMO, screening, digital, bilateral, w/ CAD completed [address], [address], 10/03/2019 10:36:33 10/01/2019 US, breast, bilateral completed [facility] (Department Of Radiology/Imaging ) [address] [place] [address], [address], 10/03/2019 10:36:33 10/02/2020 MAMMO, screening, digital, bilateral, w/ CAD completed [email or web address] [place] [address] (Imaging) [address] [place] [address], [address], 10/02/2020 12:07:26 10/02/2020 US, breast, bilateral completed [facility] (Imaging) [address] [place] [address], [address], 10/06/2020 13:52:06 10/02/2020 DEXA, axial skeleton completed [facility] (Imaging) [address] [place] [address], [address], 10/06/2020 13:52:06 12/01/2021 US, breast, bilateral completed [email or web address] [facility] ([facility]) [address] , [place], [address], 12/02/2021 11:35:39 12/01/2021 MAMMO, screening, digital, bilateral, w/ CAD completed [facility] ([facility]) [address] , [place], [address], 12/04/2021 12:33:03 01/24/2023 MAMMO, screening, digital, bilateral, w/ CAD completed [facility] [address] [facility] [address], [place], [address], 01/25/2023 15:34:42 03/21/2024 US, breast, bilateral, complete active [facility] [place] ([facility]) [address], [place], [address], 03/21/2024 13:14:07 03/21/2024 MAMMO, screening, digital, bilateral, w/ CAD active [facility] [place] [address], [place], [address], 03/21/2024 11:45:47 03/21/2024 DEXA, axial skeleton active [facility] ([facility]) [address], [place], [address], 03/21/2024 12:04:54 Procedure Notes None recorded. Medical Equipment None Reported. Allergies Allergen ID Allergen Name Allergen Category Reaction Reaction Severity Criticality Documentation Date Start Date Code Code System Note Provider Name and Address Organization Details Recorded Time 801905 Product containin g penicilli n and antibioti c (product) medicatio n Not available Not available Not available 07/23/20142012 99021 05 SNOMED Not Available [facility] 5 09:50:36 660347 erythromy tony medicatio n Not available Not available Not available 07/30/20142012 4053 RxNorm Rosalie Harvey [facility], [place] - [facility] 6 09:15:41 Medications Name Sig Start [...] Not Available Not Available Not Available betametha sone, augmented 0.05 % topical cream 11/14 completed [...] Available Not Available No t Available Afluria 5603-1910 (PF) 45 mcg(15 mcg x 3)/0.5 mL [...] Not Available Vitals Date Recorded Body height Provider Name an d Address Organization Details Last Updated DateTime 11/14/2018 154.31 cm Carline Ernandez [facility] 11/14/2018 15:04:55 Date Recorded Body mass index (BMI) Body weight Provider Name and Address Organization Details Last Updated DateTime 11/14/2018 31.8 kg/m2 10364.93 g Carline Ernandez [facility] 11/14/2018 15:05:43 Date Recorded Body height Provider Name an d Address Organization Details Last Updated DateTime 12/11/2019 154.31 cm Carline Ernandez [facility] 12/11/2019 10:30:12 Date Recorded Body mass index (BMI) Body weight Provider Name and Address Organization Details Last Updated DateTime 12/11/2019 33.3 kg/m2 12977.66 g Carline Ernandez [facility] 12/11/2019 10:30:22 Date Recorded Body height Provider Name an d Address Organization Details Last Updated DateTime 01/09/2021 154.31 cm Jay Jay [facility] 01/09/2021 10:55:37 Date Recorded Body mass index (BMI) Body weight Provider Name and Address Organization Details Last Updated DateTime 01/09/2021 33 kg/m2 65506.48 g [facility] 01/09/2021 10:59:36 Date Recorded Body height Provider Name an d Address Organization Details Last Updated DateTime 02/10/2022 154.31 cm Brunalucio Pang [facility] 02/10/2022 10:44:54 Date Recorded Body mass index (BMI) Body weight Provider Name and Address Organization Details Last Updated DateTime 02/10/2022 34.1 kg/m2 89144.03 g Bruna Bird [facility] 02/10/2022 10:51:08 Date Recorded Body height Provider Name an d Address Organization Details Last Updated DateTime 05/10/2023 154.94 cm [facility] 05/10/2023 13:18:32 Date Recorded Body mass index (BMI) Body weight Provider Name and Address Organization Details Last Updated DateTime 05/10/2023 28.6 kg/m2 62340.24 g [facility] 05/10/2023 13:18:50 Date Recorded Systolic blood pressure Diastolic blood pressure Provider Name and Address Organization Details Last Updated DateTime 11/14/2018 142 mm[Hg] 60 mm[Hg] Carline Ernandez [facility] 11/14/2018 15:05:46 Date Recorded Systolic blood pressure Diastolic blood pressure Provider Name and Address Organization Details Last Updated DateTime 12/11/2019 130 mm[Hg] 64 mm[Hg] Carline Ernandez [facility] 12/11/2019 10:31:23 Date Recorded Systolic blood pressure Diastolic blood pressure Provider Name and Address Organization Details Last Updated DateTime 01/09/2021 120 mm[Hg] 70 mm[Hg] Jay Jay Tolliver [facility] 01/09/2021 10:59:17 Date Recorded Systolic blood pressure Diastolic blood pressure Provider Name and Address Organization Details Last Updated DateTime 02/10/2022 134 mm[Hg] 88 mm[Hg] Bruna Pang [facility] 02/10/2022 10:53:36 Date Recorded Systolic blood pressure Diastolic blood pressure Provider Name and Address Organization Details Last Updated DateTime 05/10/2023 110 mm[Hg] 70 mm[Hg] Alexis Martin [facility] 05/10/2023 13:18:27 Social History Question Answer Notes LastModified by Organizat ion Details LastModified Time Tobacco Smoking Status Former Smoker during college - quit in the 70s CANDICE MENENDEZ, DO [address] [facility], 3rd Floor, [place], [address], [facility] 11/14/2018 15:13:57 Do You Have An Advance Directive? Yes Information not available 05/10/2023 What Is Your Level Of Alcohol Consumption? Occasional Socially [email or web address] Information not available 02/10/2022 How Many Times Per Week Do You Consume Alcohol? 1-2 Times Per Week Information not available 05/10/2023 Is Blood Transfusion Acceptable In An Emergency? Yes Information not available 05/10/2023 What Is Your Level Of Caffeine Consumption? Heavy Information not available 05/10/2023 In The 14 Days Before Symptom Onset, Have You Had Close Contact With A Laboratory-confi rmed COVID-19 While That Case Was Ill? No [email or web address] Information not available 02/10/2022 In The 14 Days Before Symptom Onset, Have You Had Close Contact With A Person Who Is Under Investigation For COVID-19 While That Person Was Ill? No [email or web address] Information not available 02/10/2022 Have You Been To An Area Known To Be High Risk For COVID-19? No Information not available 02/10/2022 Are You Currently [...] Or The Highest Degree You Have Received? [id number] Information not available 05/10/2023 Have There Been Any Changes To Your Family Or Social Situation? No Information not available 05/10/2023 Are There Any Guns Present In Your Home? No Information not available 05/10/2023 Have You Recently Or Are You Planning To Travel To An Area With Zika Virus? No [email or web address] Information not available 02/10/2022 Do You Have [...] Anxious, Or Unable To Sleep At Night)? [id number] Information not available 05/10/2023 Have You Recently Traveled Abroad? No Information not available 02/10/2022 Sex: Unknown Functional [...] Stones N *No Diseases or Conditions N Blood clots N Breast Cancer N Colon cancer N Benign breast disease N Depression N Lung Disease N Defects or Inherited Disease N Anesthesia Complications N Neurological Disorder N Headaches/Migraines N Have you ever been on isolation N Anxiety Disorder N HSV N Arthritis N Infertility N Interstitial Cystitis N Abnormal pap N Acid Reflux (GERD) N Cancer Y Stroke N Endometriosis N Fibromyalgia N Spina Bifida N HIV N Heart Problems Y Sexual Dysfunction N Hypogonadism N Autoimmune disorder N Kidney or Bladder Problems N Thyroid Problems N GI Problems N Eating Disorder N Anemia N Multiple Sclerosis N Psychiatric Illness N Ovarian Cancer N Diabetes N Blood Transfusions N Bladder disease N History of MRSA N None reported by patient N Abnormal Uterine Bleeding N Hyperlipidemia N BrCa positive N Diverticulitis N Abuse/Domestic Violence N Asthma N Bladder Cancer N Hepatitis [...] Immunizations Vaccine Type Date Status Note Provider Nam e and Address Organization Details Recorded Time COVID-19, mRNA, LNP-S, PF, 30 mcg/0.3 mL dose 04/29/2020 completed [place], [facility] 01/09/2021 10:56:36 COVID-19, mRNA, LNP-S, PF, 30 mcg/0.3 mL dose 11/30/2020 completed [place], [place] [facility] 01/09/2021 10:56:52 COVID-19, mRNA, LNP-S, PF, 30 mcg/0.3 mL dose 05/20/2020 completed [place], [facility] 01/09/2021 10:57:05 Past Encounters Encounter ID Performer Location Encounter Start Date Encounter Closed Date Diagnosis/Indication Diagnosis SNOMED-CT Code Diagnosis ICD10 Code Diagnosis Note [id number] Rhianna Carrillo [facility] [address] [place] [address] 07/23/2014 10:21:52 07/24/2014 15:08:48 Gynecologic examination [id number] [facility] [address] [place] [address] 04/28/2012 00:00:00 [id number] [facility] [address] [place] [address] 05/22/2013 00:00:00 [id number] [facility] [address] [place] [address] 07/10/2013 00:00:00 [id number] CANDICE LESLIEKOAISLINN DO G5 [address] [place] [address] 08/26/2015 08:54:00 08/28/2015 09:02:34 Gynecologic examination [id number] Z01.419 Normal annual exam. No issues. Weight management and general health issues reviewed at length. Vaginal PAP done today. SBE reviewed/M GM due this week as well as apt with Dr Magallon. Family History reviewed as well as any findings which would suggest an increased risk of Cancer from a Genetic cause: SEE BELOW. Malignant neoplasm of uterus 421441810 C55 Treated in 2005 with [facility] GRAYSON. Family his tory of breast cancer 625705339 Z80.3 Hx of Paternal GM with Breast CA in her 40s. Patient was tested and was BRCA negative but still has an elevated Family Risk - sees Dr Magallon and gets [facility]N through the [facility]. [id number] CANDICE SHONDO [facility] [address] [place] [address] 10/13/2016 14:48:00 10/15/2016 12:07:22 Screening for osteoporosis 239391840 Z13.820 DEXA ordered. Gynecologi c examination 10765787 Z01.419 Normal annual exam. No issues. Weight management and general health issues reviewed at length. Vaginal PAP done today. SBE reviewed. Family History reviewed as well as any findings which would suggest an increased risk of Cancer from a Genetic cause: SEE BELOW. Malignant neoplasm of uterus 241649177 C55 Treated in 2005 with [facility]ICE GRAYSON. Family his tory of breast cancer 753302823 Z80.3 Hx of Paternal GM with Breast CA in her 40s. Patient was tested and was BRCA negative but still has an elevated Family Risk - sees Dr Magallon and gets MGM/USN through the [facility]. Hormone re placement therapy 830681591 Z79.890 Happy with HRT - aware of risks. [id number] CANDICE MENENDEZ DO G[address] [place] [address] 11/11/2017 13:48:43 11/14/2017 07:59:30 Gynecologic examination 76519266 Z01.419 Normal annual exam. No issues. Weight management and general health issues reviewed at length. Vaginal PAP done today. SBE reviewed. Family History reviewed as well as any findings which would suggest an increased risk of Cancer from a Genetic cause: SEE BELOW. Malignant neoplasm of uterus 862627497 C55 Treated in 2005 with JUSTICE GRAYSON. Family his tory of breast cancer 054577735 Z80.3 Hx of Paternal GM with Breast CA in her 40s. Patient was tested and was BRCA negative but still has an elevated Family Risk - sees Dr Magallon and gets MGM/USN through the [facility]. Hormone re placement therapy 194252542 Z79.890 Happy with HRT - aware of risks. She will call when she needs refills. [id number] CANDICE MENENDEZ DO [facility] [address] [place] [address] 11/14/2018 14:45:40 11/15/2018 08:24:48 Gynecologic examination 40291943 Z01.419 Normal annual exam. No issues. Weight management and general health issues reviewed at length. Vaginal PAP done today. SBE reviewed. Family History reviewed as well as any findings which would suggest an increased risk of Cancer from a Genetic cause: SEE BELOW. Depression screening 171 567255 Z13.31 PHQ2 - negative. Screening mammography 24 740078 Z12.31 MGM up to date - slip for next year given. Osteopenia 715347720 M85 .80 DEXA (07/01/2017 ) shows Normal results in the Lumbar Spine but Osteopenia in the Femoral Neck. Using Vitamin D and Calcium supplement s. Rpt in 2 years per protocol. [id number] CANDICE MENENDEZ DO [facility] [address] [facility], [place] [address] 12/11/2019 10:22:03 12/12/2019 13:59:49 Gynecologic examination 72671111 Z01.419 Normal annual exam. No issues. Weight management and general health issues reviewed at length. 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 SBE reviewed. Family History reviewed as well as any findings which would suggest an increased risk of Cancer from a Genetic cause: SEE BELOW. Screening mammography 24 544626 Z12.31 MGM up to date. Due for Screening 09/2020. Screening for osteoporosis 469486440 Z13.820 DEXA ordered. Depression screening 171 224553 Z13.31 PHQ2 - negative. Family his tory of neoplasm of breast 179788655 Z84.89 Hx of Paternal GM with Breast CA in her 40s. Patient was tested and was BRCA negative but still has an elevated Family Risk - sees Dr Magallon and gets MGM/USN through the [facility]. Malignant neoplasm of uterus 816068754 C55 Treated in 2004 with LAVH, BSO. [id number] CANDICE MENENDEZ DO G5 [address] [place] [address] 01/09/2021 10:20:18 01/12/2021 15:45:38 Gynecologic examination 68213496 Z01.419 Normal annual exam. No issues. Weight management and general health issues reviewed at length. 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 SBE reviewed. Family History reviewed as well as any findings which would suggest an increased risk of Cancer from a Genetic cause: SEE BELOW. Screening mammography 24 169955 Z12.31 MGM up to date. Due for Screening 09/2021. Depression screening 171 138503 Z13.31 PHQ2 - negative. Mammograph ic breast density 412170963 R92.2 Screening Dense Breast USN ordered. [id number] CANDICE MENENDEZ DO [facility] [address] [facility] [place] [address] 02/10/2022 10:38:39 02/10/2022 11:21:06 Gynecologic examination 19983691 Z01.419 Normal annual exam. No new issues. Weight management and general health issues reviewed at length. 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 SBE reviewed. Family History reviewed as well as any findings which would suggest an increased risk of Cancer from a Genetic cause: SEE BELOW. Depression screening 171 760183 Z13.31 PHQ2 - negative. Screening mammography 24 822469 Z12.31 MGM up to date. Due for Screening 11/2022. Heterogene ously dense breast composition 403434839 R92.2 Dense Breast USN ordered. Family his tory of breast cancer 016103307 Z80.3 Hx of Paternal GM with Breast CA in her 40s. Patient was tested and was BRCA negative but still has an elevated Family Risk - sees Breast Specialist s and gets MGM/USN through the [facility]. Malignant neoplasm of uterus 169705396 C55 Treated in 2004 with LAVH, BSO. [id number] CANDICE MENENDEZ DO [facility] [address] [place] [address] 05/10/2023 13:13:06 05/10/2023 14:25:56 Gynecologic examination 34870821 Z01.419 Fiscal Officer for exam offered and declined today. Normal annual exam. No new EMU FARMER issues. Weight management and general health issues reviewed at length. Vaginal PAP done today. History of Adenocarci noma in situ 01/2005 LAVH/BSO. SBE reviewed. Family History reviewed as well as any findings which would suggest an increased risk of Cancer from a Genetic cause: SEE BELOW. Screening mammography 24 945455 Z12.31 MGM up to date. Due for Screening 01/2024. Heterogene ously dense breast composition 248878651 R92.2 DENSE Breast USN ordered. Postmenopausal state 764 72277 Z78.0 DEXA ordered. Malignant neoplasm of uterus 343168565 C55 Treated in 2004 with LAVH, BSO. Family his tory of breast cancer 067182952 Z80.3 Hx of Paternal GM with Breast CA in her 40s. Patient was tested and was BRCA negative but still has an elevated Family Risk - sees Breast Specialist s and gets MGM/USN through the [facility]. Depression screening 171 290247 Z13.31 PHQ2 - negative. Provision of sawyer cork slabs declined 264521037 Z53.20 Fiscal Officer for exam offered and declined today. Health Concerns Section Related Observation LastModified by Organization Detai ls LastModified Time None Recorded Concern Status LastModified by Organization Details LastModified Time None Recorded Advance Directives Directive Y: Payers Encounter Date Sequence Insurance Name Policy Number Policy [place] Covered Member ID [place] Member ID Guarantor Name 11/14/2018 1 [facility] [id number] Kerri Villalbaden [id number] Kerri Rivera 12/11/2019 1 [employer] (POS) [id number] Kerri Rivera [id number] Kerri Rivera 01/09/2021 1 MEDICARE B-CT: NGS Kerri Villalbaden [id number] Kerri Rivera 01/09/2021 2 [employer] (MEDICARE SUPPLEMENT) Kerri Rivera [id number] Kerri Rivera 02/10/2022 1 MEDICARE B-CT: NGS Kerri Louisa VillalbaRivera [id number] Kerri Rivera 02/10/2022 2 [employer] (MEDICARE SUPPLEMENT) Kerri Rivera [id number] Kerri Rivera 05/10/2023 1 MEDICARE B-CT: NGS Kerri Villalbaden [id number] Kerri Rivera 05/10/2023 2 [employer] OPT[employer] (MEDICARE SUPPLEMENT) Kerri Rivera [id number] Kerri Rivera Notes Date Note Type Note Provider Name and Address Organization Details Recorded Time 11/14/2018 text/html [facility] Annual GYNRe ported bypatient.History:no gynecologic complaints; [...] up to date CANDICE MENENDEZ DO [address] [facility], 3[address], [place], [address], [place] [facility] 11/14/2018 15:26:30 12/11/2019 text/html [facility] Annual GYNRe ported bypatient.History:no gynecologic complaints; [...] to schedule (07/01/2017 Osteopenia) CANDICE MENENDEZ DO [address] [place] [address], [phone], [facility] 12/11/2019 12:15:34 01/09/2021 text/html [facility] Annual GYNRe ported bypatient.History:no gynecologic complaints; [...] date (10/02/2020 NORMAL) CANDICE MENENDEZ DO [address] [facility], [address] [place] [address], [phone], [facility] 01/09/2021 11:15:41 02/10/2022 text/html [facility] Annual GYNRe ported bypatient.Menstrual cycle:postmenopausal Urinary [...] risk HPV typing CANDICE MENENDEZ DO [address] [facility], [address] [place] [address], [phone], [facility] 02/10/2022 11:10:35 05/10/2023 text/html [facility] Annual GYNRe ported bypatient.Menstrual cycle:postmenopausal Urinary [...] starting age 41 CANDICE MENENDEZ DO [address] [facility], [address] [place] [address], [phone], [facility] 05/10/2023 14:09:21 OBGyn Episode No OBEpisode recorded.
--- OUTSIDE RECORDS SUMMARY | 2024-03-22 13:15 | XMS_ITS | Encounter Summary ---
Author Organization [facility] [place] [address] Care Team Providers Care Cigarette Catcher Name Role Phone Kita Guy Primary Care Provider [phone] Encounter Details Date Type Department Care Team (Late st Contact Info) Description 12/12/2023 10:07 AM EDT Hospital Encounter TH HISTORIC ENCOUNTERS EASTERN CONVERSION ONLY Social History Tobacco Use Types Packs/Day Years Used Date Smoking Tobacco: Former Cigarettes Q uit: 02/21/1975 Smokeless Tobacco: Never Alcohol Use Standard Drinks/Week Comments Yes 3 (1 standard drink = 0.6 oz pur e alcohol) Sex and Gender Information Value Date Recorded Sex Assigned at Not on file Gender Identity Not on file Sexual Orientation Not on file documented as of this encounter Last Filed Vital Signs Vital Sign Reading Time Taken Comments Blood Pressure - - Pulse - - Temperature - - Respiratory Rate - - Oxygen Saturation - - Inhaled Oxygen Concentration - - Weight 69.9 kg (154 lb) 11/14/2023 11:44 AM EDT Height 154.9 cm (5' 1 ) 02/01/2023 10:58 AM EST Body Mass Index 29.1 02/01/2023 10:58 AM EST documented in this encounter Progress Notes * VENUS Diaz - 12/12/2023 10:30 AM EDT Glucose reading Time in range (%) >250 0 181-250 0 70-180 42 54-69 53 <54 5 GMI 5.0 Avg glucose 72 Hypoglycemia on CGM, >50% readings below 69 No offending meds Refer to endocrine for further eval documented in this encounter Plan of Treatment Not on file documented as of this encounter Visit Diagnoses Not on filedocumented in this encounter Care Teams Cigarette Catcher Relationship Specialty Start Date End Date Kita Guy PA PCP - General 08/06/23 documented as of this encounter
--- OUTSIDE RECORDS SUMMARY | 2024-03-22 13:15 | XMS_ITS | Encounter Summary ---
Author Organization [facility] [place] [address] Care Team Providers Care Boat Loader Name Role Phone Kita Guy Primary Care Provider [phone] Encounter Details Date Type Department Care Team (Late st Contact Info) Description 11/28/2023 9:36 AM EDT Hospital Encounter TH HISTORIC ENCOUNTERS [...] 10:58 AM EST documented in this encounter Plan of Treatment Not on file documented as of this encounter Visit Diagnoses Not on filedocumented in this encounter Care Teams Boat Loader Relationship Specialty Start Date End Date Kita Guy PA PCP - General 08/06/23 documented as of this encounter
--- OUTSIDE RECORDS SUMMARY | 2024-03-22 13:15 | XMS_ITS | Clinical Summary ---
Author Organization [facility] Address [address] [place] [address] Care Team Providers Care Forming Acid Dumper Name Role Phone Kita Guy PA-C Primary Care Provider Allergies Active Allergy Reactions Criticality Noted Date Comments Penicillins 08/29/2014 Medications Medication Sig Dispensed Refills Start Date End Date Status Eliquis 5 MG TABS tablet Take 1 tablet (5 mg total) by mouth 2 (two) times a day. 0 03/03/2023 Active Edarbi 40 MG TABS TAKE 1 TABLET BY MOUTH DAILY 90 tablet 3 05/29/2023 Active LORazepam (Ativan) 0.5 MG tablet Take 1 tablet (0.5 mg total) by mouth every 8 (eight) hours as needed. 14 tablet 0 07/20/2023 07/19/2024 Active Additional Information Patient not taking.Reason: Other, Reported on 07/28/2023 dilTIAZem HCl ER 180 MG TB24 0 08/29/2023 Active escitalopram (LEXAPRO) tablet 10 mg TAKE 1 TABLET BY MOUTH DAILY 90 tablet 3 12/12/2023 Active Active Problems Problem Noted Date Diagnosed Date Anxiety state 07/20/2023 Paroxysmal atrial fibrillation 04/12/2023 Elevated brain natriuretic peptide (BNP) level 0 04/12/2023 History of pneumonia 04/12/2023 PVC's (premature ventricular contractions) 11/23 Labile hypertension 03/16/2022 Erythrocytosis 03/08/2022 Elevated LFTs 03/08/2022 Stage 2 chronic kidney disease 09/25/2020 Class 1 obesity due to exces s calories with serious comorbidity and body mass index (BMI) of 33.0 to 33.9 in adult 05/26/2020 Pulmonary hypertension 08/31/2017 Abnormal echocardiogram 05/18/2017 Essential hypertension 11/24/2016 Family history of breast cancer 08/29/2015 Resolved Problems Problem Noted Date Diagnosed Date Resolved Date Visit for screening mammogram 09/23/2017 06/16/2018 Encounter for screening colonoscopy 09/03/2016 03/20/2019 Inconclusive mammogram due to dense breasts 08/29/2015 06/16/2018 Immunizations Name Administration Dates Next Due Covid-19 (Pfizer) Dilution Required 06/21,11/30/2020,05/20/2020, 021 Influenza Quad (Afluria/Fluz one) 0.5mL >=6mon Vial (SD-IIV4) 11/06/2018,12/23/2017,12/27/2016 Influenza Quad (Flucelvax) 0 .5mL >6mon (ccIIV4) 11/30/2020 Influenza Trivalent (Fluzone/Afluria) 5.0mL Multi-dose Vial 11/05/2019 Zostavax (Zoster Live) 06/29/2017 Family History Medical History Relation Name Comments Polycythemia Father Breast cancer Maternal Aunt 1 60 Uterine cancer Maternal Aunt 2 UT CA Esophageal cancer Maternal Uncle 1 Esophageal cancer Maternal Uncle 2 Breast cancer Paternal Grandmother 40 and 50 bilat breast ca BRCA 1/2 Neg Hx Bladder Cancer Neg Hx Colon cancer Neg Hx Endometrial cancer Neg Hx Ovarian cancer Neg Hx Pancreatic cancer Neg Hx Relation Name Status Comments Father Maternal Aunt 1 60 Alive Maternal Aunt 2 UT CA Maternal Uncle 1 Maternal Uncle 2 Paternal Grandmother Social History Tobacco Use Types Packs/Day Years Used Date Smoking Tobacco: Former Cigarettes Q uit: 1976 Smokeless Tobacco: Never Tobacco Cessation:Counseling Given: Not Answered Alcohol Use Standard Drinks/Week Comments Yes 3 (1 standard drink = 0.6 oz pur e alcohol) Sex and Gender Information Value Date Recorded Sex Assigned at Not on file Gender Identity Not on file Sexual Orientation Not on file Job Start Date Occupation Industry Not on file Not on file Not on file Last Filed Vital Signs Vital Sign Reading Time Taken Comments Blood Pressure 163/74 11/14/2023 12:10 PM EDT Pulse 63 11/14/2023 11:44 AM EDT Temperature 36.1 ??C (97 ??F) 11/14/2023 11:44 AM EDT Respiratory Rate 18 05/24/2022 3:43 PM EDT Oxygen Saturation 98% 11/14/2023 11:44 AM EDT Inhaled Oxygen Concentration - - Weight 69.9 kg (154 lb) 11/14/2023 11:44 AM EDT Height 154.9 cm (5' 1 ) 02/01/2023 10:58 AM EST Body Mass Index 29.1 02/01/2023 10:58 AM EST Plan of Treatment Health Maintenance Due Date Last Done Comments DTap / Tdap / Td (1 - Tdap) 01/09/1975 Shingrix-Zoster Vaccine (1 of 2) 08/24/2017 Pneumococcal Vaccine (1 of 1 - PCV) 01/09/2021 Osteoporosis Screening (DEXA Scan) 10/02/2022 10/02/2020, 07/01/2017 BMI Counseling 05/25/2023 05/24/2022 COVID-19 Vaccine ( season) 2023 07/03/2021, 11/30/2020, 05/20/2020, Additional history exists Influenza Vaccine (#1) 2023 , 11/05/2019, 11/06/2018, Additional history exists Depression Screening 11/24/2023 11/23/2022, 10/13/19 22 Fall Risk Assessment 11/24/2023 11/23/2022, 10/13/19 22 Preventative Health Evaluation 11/24/2023 11/23/2022, 10/12/2021, 10/12/2021, Additional history exists Breast Cancer Screening (Mammogram) 01/24/2025 01/24/2023, 12/01/2021, 10/02/2020, Additional history exists Colon Cancer Screening (Colonoscopy) 10/04/2026 10/04/2016 RSV Adult > 60+ Yrs or (1 - 1-dose 75+ series) 01/09/2031 Hepatitis C Screening Completed 03/20/2019 Hepatitis B Vaccines Aged Out No long er eligible based on patient's age to complete this topic RSV Ped < 20 months Aged Out No longe r eligible based on patient's age to complete this topic Advance Directives For more information, please contact: [phone] Latest Code Status on File Code Status Date Activated Date Inactivated Comments Full Code 10/04/2016 9:22 AM 10/04/2016 4:00 PM This code status was ascertained in the following way: discussion with patient. Care Teams Forming Acid Dumper Relationship Specialty Start Date End Date Kita Guy PA-C PCP - General Outside Machinist Supervisor 08/06/23
== END 2024-03-22 10:24 | disposition home or self-care (01) ==
PROVIDERS: PCP Physician Assistant Medical; Visit Provider Internal Medicine Hypertension Specialist
DX: I12.9 Hypertensive chronic kidney disease with stage 1 through stage 4 chronic kidney disease, or unspecified chronic kidney disease (principal); N18.9 Chronic kidney disease, unspecified
CPT/HCPCS: 99214

== ENCOUNTER → 2024-03-22 10:04 | Outpatient (BNVA) | payer MEDICARE, SELFPAY | PROVIDERS: PCP Physician Assistant Medical; Visit Provider Internal Medicine Hypertension Specialist | DX: I12.9 Hypertensive chronic kidney disease with stage 1 through stage 4 chronic kidney disease, or unspecified chronic kidney disease (principal); N18.9 Chronic kidney disease, unspecified | CPT/HCPCS: 99212 ==